=== PATIENT | female | born 1990 | race American Indian/Alaskan Native ===

== ENCOUNTER → 2020-11-05 17:02 | Outpatient (CLI) | payer MEDICAID, SELFPAY ==
[2020-11-05 18:03] LABS: Add Manual Diff / Slide Review NO; Basophils Absolute Auto 0 /uL (0-100); Basophils Percent Auto 0.6 % (0-2); Eosinophils Absolute Auto 200 /uL (0-450); Eosinophils Percent Auto 2.1 % (2-4); Hematocrit 30.9 % (36-46); Hemoglobin 10.8 g/dL (12.0-16.0); Lymphocytes Absolute Auto 1300 /uL (1100-4500); Lymphocytes Percent Auto 15.9 % (25-40); Mean Corpuscular HGB Conc 34.8 % (30-36); Mean Corpuscular Hemoglobin 31.2 PG (26-34); Mean Corpuscular Volume 89.5 fL (80-100); Monocytes Absolute Auto 300 /uL (0-900); Monocytes Percent Auto 3.6 % (3-14); Neutrophils Absolute Auto 6300 /uL (1500-7000); Neutrophils Percent Auto 77.8 % (50-75); Platelet Count 236 X10^3/uL (150-400); Red Blood Cell Count 3.45 X10^6/uL (4.0-5.2); Red Cell Distribution Width 14.4 % (11.6-14.8)
[2020-11-06 09:22] LABS: RPR Screen Non Reactive (Non Reactive); Varicella IgG Antibody 553 index (Immune >165)
[2020-11-06 15:55] LABS: Hepatitis B Surface Antigen NEGATIVE s/c (NEGATIVE); Rubella Antibody IgG 33.6 IU/mL (>15)
[2020-11-06 16:07] LABS: HIV 1 & 2 Ab/Ag 4th Gen Combo NEGATIVE (NEGATIVE); Hep C Virus Ab w/Reflex Quant NEGATIVE s/c (NEGATIVE)
[2020-11-07 20:35] LABS: Estriol, Free 2.43 ng/mL (.); Inhibin A, Dimeric 462.84 pg/mL (.); Inhibin A, MoM 1.82 (.); Maternal Ethnicity Other (.); Maternal Weight 104 lbs (.); Number of Fetuses Twins (.); OSBR Risk 1 IN 10000 (.); Results Report (.); Test Results *Screen Negative* (.); hCG, Serum 36847 mIU/mL (.)
== END ==
PROVIDERS: Referring Provider Obstetrics & Gynecology; Visit Provider Obstetrics & Gynecology
DX: O30.041 Twin pregnancy, dichorionic/diamniotic, first trimester (principal); Z3A.16 16 weeks gestation of pregnancy
CPT/HCPCS: 36415; 80055; 82105; 82677; 84702; 86336; 86787; 86803; 86850; 86900; 86901; 87389

== ENCOUNTER → 2021-01-06 10:28 | Outpatient (CLI) | payer MEDICAID, SELFPAY ==
--- NOTE | 2021-01-06 10:30 | DI.US.S_ITS ---
PROCEDURE: US OB >= 14 WK FETUS ADD GEST INDICATIONS: Evaluate anatomy and twin gestation. OUTSIDE/PRIOR DATING DATA: First dating scan (date and location): 08/31/2020 . Estimated date of delivery (HUI) from first dating scan: 04/17/2021 . TECHNIQUE: Real-time scanning was performed of the fetuses, with image documentation and biometric measurements. Endovaginal scanning: No COMPARISON: None. FINDINGS: General: An intrauterine dichorionic-diamniotic twin is present, as evidenced by separate placentas, differing sexes, or an intervening membrane of greater than 2 mm. Composite amniotic fluid index: Not evaluated Maternal cervical canal: 3.0 cm long. Normal lower limit is 2.5 cm. FETUS A: Fetus is located on the maternal left side, and is in vertex presentation. Largest amniotic fluid pocket: 7.2 cm, normal is 2-8 cm. Placental position is posterior , without previa. heart rate: 137 beats per minute. biometrics: Biparietal diameter: 27 weeks Head circumference: 26 weeks Abdominal circumference: 25 weeks Femur length: 25 weeks 2 days Estimated gestational age from initial scan: 25 weeks 4 days Composite gestational age from present scan: 25 weeks 6 days Estimated weight and percentile: 788 g; 26 percentile Measurement variability for biometric dating: +/- 7 days from 14 weeks to 15 weeks 6 days gestation, +/- 10 days from 16 weeks to 21 weeks 6 days gestation, +/- 2 weeks from 22 weeks to 27 weeks 6 days gestation, +/- 3 weeks for 28 weeks gestation or later. weight reference: 4500 g or EFW >90/95% is considered macrosomia or large for gestational age. EFW <10% is small for gestational age. EFW 5% or less is considered intra-uterine growth restriction. Normal appearance of the ventricles, choroid plexus, cerebellum, cisterna magna, face, spine, four-chamber heart, cardiac outflow tracts, chest, stomach, kidneys, cord insertion site, urinary bladder and the right and left upper lower extremities. FETUS B: Fetus is located on the maternal right side, and is in vertex presentation. Largest amniotic fluid pocket: 6.8 cm, normal is 2-8 cm. Placental position is posterior, without previa. heart rate: 139 beats per minute. biometrics: Biparietal diameter: 25 weeks 6 days Head circumference: 25 weeks 1 day Abdominal circumference: 25 weeks 2 days Femur length: 24 weeks 5 days Estimated gestational age from initial scan: 25 weeks 4 days Composite gestational age from present scan: 25 weeks 2 days Estimated weight and percentile: 766 g; 20 percentile Measurement variability for biometric dating: +/- 7 days from 14 weeks to 15 weeks 6 days gestation, +/- 10 days from 16 weeks to 21 weeks 6 days gestation, +/- 2 weeks from 22 weeks to 27 weeks 6 days gestation, +/- 3 weeks for 28 weeks gestation or later. weight reference: 4500 g or EFW >90/95% is considered macrosomia or large for gestational age. EFW <10% is small for gestational age. EFW 5% or less is considered intra-uterine growth restriction. Normal appearance of the ventricles, choroid plexus, cerebellum, cisterna magna, face, spine, four-chamber heart, cardiac outflow tracts, chest, stomach, kidneys, cord insertion site, urinary bladder and the right and left upper lower extremities. IMPRESSION: 1. Living diamniotic dichorionic twin gestation and interval growth is normal for each fetus. 2. Placental cord insertion site not well visualized for fetus A; otherwise normal anatomic survey. Dictated by: Musa Bazan RRRaulito Interpreted: Cynthia Thacker MD on 01/06/2021 at 14:36 Transcribed by: SUMMER on 01/06/2021 at 14:48 Approved by: Cynthia Thacker M.D. on 01/06/2021 at 16:15
== END ==
PROVIDERS: PCP Obstetrics & Gynecology; Referring Provider Obstetrics & Gynecology; Visit Provider Obstetrics & Gynecology
DX: O30.042 Twin pregnancy, dichorionic/diamniotic, second trimester (principal); Z3A.25 25 weeks gestation of pregnancy
CPT/HCPCS: 76811; 76812

== ENCOUNTER → 2021-01-19 08:36 | Outpatient (CLI) | payer MEDICAID, SELFPAY ==
[2021-01-19 10:37] LABS: Hemoglobin 10.7 g/dL (12.0-16.0)
[2021-01-19 11:22] LABS: GTT (PREG) 1 Hour PP 50gm Dose 139 mg/dL (76-139)
== END ==
PROVIDERS: Referring Provider Obstetrics & Gynecology; Visit Provider Obstetrics & Gynecology
DX: Z34.82 Encounter for supervision of other normal pregnancy, second trimester (principal); Z3A.27 27 weeks gestation of pregnancy
CPT/HCPCS: 36415; 82950; 85014; 85018

== ENCOUNTER 2021-03-05 09:08 | Emergency (ER) | payer MEDICAID, SELFPAY ==
[2021-03-05 09:14] VITALS: BP 140/86; PULSE 83; RESP 14; TEMP 36.8; O2SAT 100; BMI 28.1
--- NOTE | 2021-03-05 09:19 | PC.NURSE ---
left side face swollen
--- NOTE | 2021-03-05 09:25 | ED.DENTAL ---
HPI - Dental/Oral General Chief complaint: Dental/Oral Stated complaint: Tooth Ache Time Seen by Provider: 03/05/21 09:09 Source: patient Mode of arrival: Ambulatory History of Present Illness HPI Narrative: 31F nonsmoker with history of opioid abuse presents with left upper facial swelling and dental pain since yesterday. She denies any injury. She states she has had known dental issues but has not been of the see her dentist. She has had no fever or chills and denies any drainage in her mouth. She has no difficulty swallowing or breathing. She is currently with twins at 33 weeks. She has been chewing on ice as her only method of treatment. Related Data Home Medications Medication Instructions Recorded Confirmed buprenorphine 4 mg-naloxone 1 mg 1 film SUBLINGUAL DAILY ea 09/25/20 02/09/21 sublingual film (Suboxone) buprenorphine 8 mg-naloxone 2 mg 2 film SUBLINGUAL DAILY 09/25/20 02/09/21 sublingual film (Suboxone) ondansetron 4 mg disintegrating 4 mg PO Q6H 09/25/20 02/09/21 tablet Previous Rx's Medication Instructions Recorded vit no.116-iron 28 1 pkg PO DAILY #60 ea 09/25/20 mg-folic acid 800 mcg-dha 200 mg oral pack (Expecta ) amoxicillin 875 mg-potassium 1 tab PO BID #20 tab 03/05/21 clavulanate 125 mg tablet (Augmentin) Allergies Allergy/AdvReac Type Severity Reaction Status Date / Time No Known Drug Allergies Allergy Verified 03/05/21 09:17 Review of Systems Review of Systems Narrative: GENERAL: Denies chills, fatigue, malaise, fever, sweats. HEENT: See HPI RESPIRATORY: Denies dyspnea, cough, wheezing, hemoptysis, sputum. CARDIOVASCULAR: Denies chest pain, palpitations, orthopnea, edema, GASTROINTESTINAL: Denies nausea, vomiting, abdominal pain, diarrhea, constipation, melena. : Denies dysuria, frequency, incontinence, hematuria, urinary retention. MUSCULOSKELETAL: denies weakness, joint pain, or bony pain SKIN: Denies rash, skin lesions, or other NEUROLOGIC: Denies weakness, headache, numbness, change in speech, confusion, seizures, incoordination. PSYCHIATRIC: No concerning psychosocial issues. 12 point review of systems is negative except for those stated above Patient History Medical History Chicken pox (~1995) Chronic back pain (~2017) Fall from balcony (~2017) Scoliosis Substance abuse (~2018) Wears glasses Social History marital status: unmarried,living together number of children: 1 household members: significant other and children lives independently: Yes caregiver/support person: No housing: apartment (Moving into a new apartment today. ) pets and animals: Yes (1 Puppy: not sure if she will keep it. Milagro. ) education level: high school (GED in 2018. 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 ) current occupational exposures/hazards: No special florencio needs: No seatbelt use: always do you feel safe at home: Yes Smoking Status: Never smoker second hand exposure: No alcohol intake: never (In recovery.) substance use type: marijuana (Stopped with diagnosis. ) during the past year weight has: remained stable well-balanced diet: daily or most days daily servings fruits/ve-4 caffeine: No Type(s) of exercise: walking frequency: daily duration: 30-45 minutes/day Smoking Status: Never smoker alcohol intake frequency: holidays/special occasions only Substance Use Type: does not use Exam Narrative Exam Narrative: GEN: AOx3 and in mild distress EYES: Pupils are equal, round, and reactive to light and accommodation. Extraoccular muscles are intact bilaterally. There is no subconjunctival hemorrhage or exudate. ENT: left upper facial swelling. No redness, warmth, or fluctuance. Oral exam notes widespread poor dentition. No palpable abscess to drain. CHEST: Lungs are clear to auscultation bilaterally and free of wheezes, rales, or rhonchi. Heart rate is regular rhythm, there are no murmurs, clicks, rubs, or gallops. There is no chest wall tenderness. ABD: Abdomen is soft and nontender. There is no guarding or rebound. Bowel sounds are normal in all 4 quadrants. There is no mass or organomegaly. EXT: Full painless ROM of all extremities with no loss of sensation or strength. SKIN: Warm, pink, and dry. No erythema or rash Initial Vital Signs Initial Vital Signs: Vital Signs Temperature 98.2 F 03/05/21 09:14 Pulse Rate 83 03/05/21 09:14 Respiratory Rate 14 03/05/21 09:14 Blood Pressure 140/86 03/05/21 09:14 Pulse Oximetry 100 03/05/21 09:14 Course Vital Signs Vital signs: Vital Signs - 8 hr 03/05/21 09:14 Temperature 98.2 F Pulse Rate 83 Respiratory Rate 14 Blood Pressure 140/86 Pulse Oximetry 100 Discharge Plan Departure Patient Disposition: Home Clinical Impression: Dental infection Instructions: Tooth Abscess Activity Restrictions/Additional Instructions: *You have been diagnosed with [Dental infection with likely abscess ] *What to do: *Please continue to take your regular medications as directed. [ ] New medication prescriptions sent to your pharmacy: *Please follow up with your primary care provider in 2-3 days, call for an appointment. Let them know you were seen in the Emergency Department and that we ask that you be seen in follow up. We will electronically transmit a record of today's note if your PCP is in our system *If you do not have a primary care provider please contact the [facility] Resource line at [phone]. They will ask some questions about your medical history and help get you set up with a doctor in the community. *Return to Emergency Department if you should have any new, worsening or concerning symptoms, such as [fever greater than 101 F, shaking chills, worsening pain, persistent vomiting or other bothersome symptoms] Prescriptions: New amoxicillin-pot clavulanate [Augmentin] 875-125 mg tablet 1 tab PO BID Qty: 20 0RF No Action buprenorphine-naloxone [Suboxone] 8-2 mg film 2 film sublingual DAILY 0RF Rx Instructions: place 1 strip/tab under (each) side of tongue ondansetron 4 mg tablet,disintegrating 4 mg PO Q6H 0RF Expecta 28 mg iron-800 mcg-200 mg combo pack 1 pkg PO DAILY Qty: 60 4RF buprenorphine-naloxone [Suboxone] 4-1 mg film 1 film sublingual DAILY 0RF Rx Instructions: place 1 strip/tab under (each) side of tongue Referrals: Miscellaneous,Doctor, MD [Primary Care Provider] -
== END 2021-03-05 09:37 | disposition home or self-care (01) ==
PROVIDERS: Emergency Provider Emergency Medicine
DX: O26.893 Other specified pregnancy related conditions, third trimester (principal); K04.7 Periapical abscess without sinus; Z3A.33 33 weeks gestation of pregnancy
CPT/HCPCS: 99281

== ENCOUNTER 2021-03-11 16:11 | Outpatient (CLI) | payer MEDICAID, SELFPAY | END 2021-03-11 17:10 | disposition home or self-care (01) | LOC: OB 03-16 14:40 | PROVIDERS: Referring Provider Obstetrics & Gynecology; Visit Provider Obstetrics & Gynecology | DX: O30.043 Twin pregnancy, dichorionic/diamniotic, third trimester (principal); Z3A.34 34 weeks gestation of pregnancy; Z34.83 Encounter for supervision of other normal pregnancy, third trimester | CPT/HCPCS: 59025; 87086; G0378; G0379 ==

== ENCOUNTER → 2021-03-11 16:21 | Outpatient (CLI) | payer MEDICAID, SELFPAY | PROVIDERS: Referring Provider Obstetrics & Gynecology; Visit Provider Obstetrics & Gynecology | DX: Z34.83 Encounter for supervision of other normal pregnancy, third trimester (principal); Z3A.34 34 weeks gestation of pregnancy | CPT/HCPCS: 87086 ==

== ENCOUNTER → 2021-03-26 15:22 | Outpatient (CLI) | payer MEDICAID, SELFPAY ==
[2021-03-27 14:35] LABS: Strep Grp B PCR NEG for Grp B Strep
== END ==
PROVIDERS: PCP Obstetrics & Gynecology; Visit Provider Obstetrics & Gynecology
DX: Z34.83 Encounter for supervision of other normal pregnancy, third trimester (principal); Z3A.36 36 weeks gestation of pregnancy
CPT/HCPCS: 87653

== ENCOUNTER → 2021-03-27 16:06 | Outpatient (CLI) | payer MEDICAID, SELFPAY ==
[2021-03-27 16:50] LABS: Add Manual Diff / Slide Review NO; Basophils Absolute Auto 100 /uL (0-100); Basophils Percent Auto 1.2 % (0-2); Eosinophils Absolute Auto 100 /uL (0-450); Eosinophils Percent Auto 1.4 % (2-4); Hemoglobin 11.5 g/dL (12.0-16.0); Lymphocytes Absolute Auto 1200 /uL (1100-4500); Mean Corpuscular HGB Conc 34.9 % (30-36); Mean Corpuscular Hemoglobin 30.5 PG (26-34); Mean Corpuscular Volume 87.5 fL (80-100); Monocytes Absolute Auto 200 /uL (0-900); Monocytes Percent Auto 4.7 % (3-14); Neutrophils Absolute Auto 3600 /uL (1500-7000); Neutrophils Percent Auto 69.7 % (50-75); Platelet Count 181 X10^3/uL (150-400); Red Blood Cell Count 3.77 X10^6/uL (4.0-5.2); Red Cell Distribution Width 12.6 % (11.6-14.8); White Blood Cell Count 5.1 X10^3/uL (4.5-11.0)
[2021-03-27 17:10] LABS: Aspartate Aminotransferase 28 IU/L (14-36); BUN Creatinine Ratio 11.7 (6-22); Blood Urea Nitrogen 11 mg/dL (7-17); Estimated Glomerular Filt Rate > 60.0 mL/min (>60); Uric Acid 6.4 mg/dL (2.5-6.2)
[2021-03-27 19:18] LABS: Creatinine Urine Random 253.4 mg/dL
[2021-03-27 19:26] LABS: Protein (Total) Urine Random 578 mg/dL (0-12); Protein Creatinine Ratio Urine 2.28 GRAM/24H
== END ==
PROVIDERS: PCP Obstetrics & Gynecology; Referring Provider Obstetrics & Gynecology; Visit Provider Obstetrics & Gynecology
DX: O30.043 Twin pregnancy, dichorionic/diamniotic, third trimester (principal); Z3A.37 37 weeks gestation of pregnancy
CPT/HCPCS: 36415; 82570; 84156; 84450; 84550; 85025

== ENCOUNTER 2021-04-02 13:44 | Inpatient (IN) | payer MEDICAID, SELFPAY ==
[2021-04-02 14:31] LABS: Add Manual Diff / Slide Review NO; Basophils Absolute Auto 100 /uL (0-100); Basophils Percent Auto 1.1 % (0-2); Eosinophils Absolute Auto 100 /uL (0-450); Eosinophils Percent Auto 1.4 % (2-4); Hematocrit 35.2 % (36-46); Hemoglobin 12.2 g/dL (12.0-16.0); Lymphocytes Absolute Auto 1400 /uL (1100-4500); Mean Corpuscular HGB Conc 34.6 % (30-36); Mean Corpuscular Hemoglobin 30.1 PG (26-34); Monocytes Absolute Auto 300 /uL (0-900); Monocytes Percent Auto 5.5 % (3-14); Neutrophils Absolute Auto 3700 /uL (1500-7000); Platelet Count 196 X10^3/uL (150-400); Red Blood Cell Count 4.05 X10^6/uL (4.0-5.2); White Blood Cell Count 5.5 X10^3/uL (4.5-11.0)
[2021-04-02 14:35] LABS: Aspartate Aminotransferase 29 IU/L (14-36); BUN Creatinine Ratio 15.5 (6-22); Blood Urea Nitrogen 17 mg/dL (7-17); Estimated Glomerular Filt Rate 58.3 mL/min (>60); Uric Acid 6.9 mg/dL (2.5-6.2)
[2021-04-03 07:11] LABS: Add Manual Diff / Slide Review NO; Basophils Absolute Auto 100 /uL (0-100); Eosinophils Absolute Auto 100 /uL (0-450); Eosinophils Percent Auto 1.7 % (2-4); Hematocrit 34.9 % (36-46); Hemoglobin 12.1 g/dL (12.0-16.0); Lymphocytes Absolute Auto 1900 /uL (1100-4500); Lymphocytes Percent Auto 28.1 % (25-40); Mean Corpuscular HGB Conc 34.8 % (30-36); Mean Corpuscular Hemoglobin 30.1 PG (26-34); Mean Corpuscular Volume 86.7 fL (80-100); Monocytes Absolute Auto 400 /uL (0-900); Monocytes Percent Auto 6.5 % (3-14); Neutrophils Absolute Auto 4200 /uL (1500-7000); Neutrophils Percent Auto 62.7 % (50-75); Platelet Count 183 X10^3/uL (150-400); Red Blood Cell Count 4.02 X10^6/uL (4.0-5.2); White Blood Cell Count 6.7 X10^3/uL (4.5-11.0)
[2021-04-03 07:26] LABS: Aspartate Aminotransferase 27 IU/L (14-36); BUN Creatinine Ratio 18.8 (6-22); Blood Urea Nitrogen 21 mg/dL (7-17); Estimated Glomerular Filt Rate 57.1 mL/min (>60); Uric Acid 7.3 mg/dL (2.5-6.2)
[2021-04-03 07:27] LABS: COVID19 -Nasal RAPID Negative (Negative)
[2021-04-03] MEDS: LACTATED RINGERS 1,000 ML 100 ML IV ×2 (07:40→09:00)
--- NOTE | 2021-04-03 07:41 | P.HPOB_ITS ---
OB HPI Date/Time Date of admission: 04/03/21 Date Patient Seen: 04/03/21 Time Patient Seen: 07:42 History of Present Condition Chief complaint: L&D HUI Calculator Estimated Delivery Date Method Current WG Current Estimate 04/17/21 Ultrasound #2 38w 0d Other Estimates 04/09/21 LMP (Uncertain) 39w 1d 03/31/21 Ultrasound #1 40w 3d # 2 Estimated Gestational Age (weeks): 38 : 2 Para: 1 care: good care, initiated at week # (11), number of visits (9) and pounds weight gain (48) Dating criteria OB: LMP confirmed by 1st trimester US Ultrasounds: normal 1st trimester US and normal mid trimester US Obstetrical complications: preeclampsia Medical complications OB: other (Suboxone 20mg/day) Indications Indication for induction OB: gestational HTN/pre-eclampsia and other (Twins) Preadmission Labs Last OB Lab Results: Blood Type A Positive 04/03/21 07:45 04/03/21 Antibody Screen Negative 04/03/21 07:45 04/03/21 Hematocrit 34.9 % (36-46) L 04/03/21 07:01 04/03/21 Hemoglobin 12.1 g/dL (12.0-16.0) 04/03/21 07:01 04/03/21 Hepatitis B Surface Antigen Negative s/c (NEGATIVE) 11/05/20 17:19 11/05/20 Hepatitis C Antibody Negative s/c (NEGATIVE) 11/05/20 17:19 11/05/20 Rubella Antibody 33.6 IU/mL (>15) 11/05/20 17:19 11/05/20 Varicella-Zoster IgG Antibody 553 index (Immune >165) 11/05/20 17:19 11/05/20 Glucose 1 Hour 139 mg/dL (76-139) 01/19/21 09:53 01/19/21 Group B Streptococcus (PCR) Neg for grp b strep 03/26/21 15:22 03/26/21 -: Chlamydia screen: negative, Gonorrhea screen: negative and Urine: negative -: PAP smear: Normal Genetic Screens: Quad screen: Normal External Labs -: Urine: negative Prior (ies) Past Pregnancies Del. Date GA/Weeks Labor Lgth Wt Sex Route Outcome Anesthesia Place Delv Breastfeed Preg Comp Name 07/30/17 38w6 2 6 lb 9.046 oz Male vaginal live - full term none [facility] Surya Jonas Did not breastfeed - Suboxone [facility] Delivery Date: 07/30/17 Last Updated by: Mariah Birmingham R.N. Did not even know she was in labor, thought it was just cramps. Came in complete @ 10cm. Sounded like precip labor. Baby kept in NICU x 8days for Subutex W/D. Baby did well. Did not breastfeed r/t opioids. Evaluation Evaluation Baseline heart rate: 130 Variability: Moderate (11-25) monitor accelerations: Present Monitor Decelerations: Absent Contraction Frequency (minutes): 4 Uterine Contraction Intensity: Moderate Status: Category l Dilation (cm): 7 Effacement (%): 100 station: -1 Position of cervix: mid Consistency: soft [facility] Medical History Chicken pox (~1995) Chronic back pain (~2016) Fall from balcony (~2016) Scoliosis Substance abuse (~2017) Wears glasses Social History marital status: unmarried,living together number of children: 1 household members: significant other and children lives independently: Yes caregiver/support person: No housing: apartment (Moving into a new apartment today. ) pets and animals: Yes (1 Puppy: not sure if she will keep it. Milagro. ) education level: high school (GED in 2018. 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 ) current occupational exposures/hazards: No special florencio needs: No seatbelt use: always do you feel safe at home: Yes Smoking Status: Never smoker second hand exposure: No alcohol intake: never (In recovery.) substance use type: marijuana (Stopped with diagnosis. ) during the past year weight has: remained stable well-balanced diet: daily or most days daily servings fruits/ve-4 caffeine: No Type(s) of exercise: walking frequency: daily duration: 30-45 minutes/day Meds Home Medications and Allergies Home Medications Medication Instructions Recorded Confirmed Type buprenorphine 4 mg-naloxone 1 mg 1 film SUBLINGUAL DAILY ea 09/25/20 04/02/21 History sublingual film (Suboxone) buprenorphine 8 mg-naloxone 2 mg 2 film SUBLINGUAL DAILY 09/25/20 04/02/21 History sublingual film (Suboxone) ondansetron 4 mg disintegrating 4 mg PO Q6H 09/25/20 04/02/21 History tablet amoxicillin 875 mg-potassium 1 tab PO BID #20 tab 03/05/21 04/02/21 Rx clavulanate 125 mg tablet (Augmentin) vit no.116-iron 28 1 pkg PO DAILY #60 ea 03/27/21 04/02/21 Rx mg-folic acid 800 mcg-dha 200 mg oral pack (Expecta ) Allergies Allergy/AdvReac Type Severity Reaction Status Date / Time No Known Drug Allergies Allergy Verified 04/02/21 13:01 OB Exam Narrative Exam Narrative: Generally: Patient very uncomfortable. Lungs: Clear to auscultation bilaterally Cardiovascular: Regular rate and rhythm Fundal height: 48cm Ext: 3+ edema, 2+ DTR's. No clonus Objective Labs Result Diagrams: 04/03/21 07:01 04/03/21 07:01 Labs: Laboratory Results - last 24 hr 04/02/21 04/02/21 04/03/21 13:58 13:58 07:00 WBC 5.5 RBC 4.05 Hgb 12.2 Hct 35.2 L MCV 87.0 MCH 30.1 MCHC 34.6 RDW 13.0 Plt Count 196 Neut % (Auto) 67.0 Lymph % (Auto) 25.0 [place] % (Auto) 5.5 Eos % (Auto) 1.4 L Baso % (Auto) 1.1 Neut # (Auto) 3700 Lymph # (Auto) 1400 [place] # (Auto) 300 Eos # (Auto) 100 Baso # (Auto) 100 BUN 17 Creatinine 1.10 H Estimated GFR 58.3 L BUN/Creatinine Ratio 15.5 Uric Acid 6.9 H AST 29 SARS-CoV-2 (PCR) Negative 04/03/21 04/03/21 07:01 07:01 WBC 6.7 RBC 4.02 Hgb 12.1 Hct 34.9 L MCV 86.7 MCH 30.1 MCHC 34.8 RDW 13.0 Plt Count 183 Neut % (Auto) 62.7 Lymph % (Auto) 28.1 [place] % (Auto) 6.5 Eos % (Auto) 1.7 L Baso % (Auto) 1.0 Neut # (Auto) 4200 Lymph # (Auto) 1900 [place] # (Auto) 400 Eos # (Auto) 100 Baso # (Auto) 100 BUN 21 H Creatinine 1.12 H Estimated GFR 57.1 L BUN/Creatinine Ratio 18.8 Uric Acid 7.3 H AST 27 SARS-CoV-2 (PCR) Assessment and Plan Assessment and Plan Assessment and Plan narrative: Assessment: 31-year-old 2 para 0 at 38 weeks gestation with dichorionic/diamniotic twins Preeclampsia Active labor Plan: Epidural Expected management to spontaneous vaginal delivery Pediatrics notified Time Spent with Patient Total time spent with greater than 50% in coordination of care (as documented) at patient's floor/unit and/or counseling patient:: 15-24 minutes
[2021-04-03] MEDS: FENT 2MCG/ML BUPIV 0.125% EPI 200 MCG/100 ML PLAST..BAG 10 MCG EPIDURAL (08:00)
[2021-04-03] MEDS: OXYTOCIN PREMIX 30 UNIT/500 ML PLAST..BAG 200 UNIT IV (10:55)
[2021-04-03] MEDS: OXYTOCIN 10 UNIT/ML VIAL IM (10:57)
[2021-04-03] MEDS: miSOPROStoL 200 MCG TABLET 800 MCG PR (11:02)
[2021-04-03] MEDS: CARBOPROST 250 MCG/ML AMPUL IM (11:04)
[2021-04-03] MEDS: TRANEXAMIC ACID 1,000 MG in SODIUM CHLORIDE 0.9% 100 ML 200 ML IV (11:06)
[2021-04-03] MEDS: ONDANSETRON 4 MG/2 ML INJ IV (11:16)
[2021-04-03] MEDS: HYDRALAZINE 20 MG/ML VIAL 5 MG IV ×2 (11:56→12:42)
--- NOTE | 2021-04-03 12:36 | P.PCNOB_ITS ---
Events: Pre-Eclampsia and Multiple gestation (Twins) Labor & Delivery Delivery date: 04/03/21 Intrapartal Events: Mild Preeclampsia Cervical ripening method: none Induction method: none Delivery augmentation: rupture of membranes Delivery monitor: external FHT and external uterine Route of delivery: (x2) Episiotomy description: None L&D Laceration Description: Perineal - 2nd Degree and Labial (right, superficial) Delivery repair: vicryl and chromic Estimated blood loss (mL): 800 Anesthesia Type: Epidural Complications: hemorrhage Baby 1: Infant gender: Male Presentation: vertex Position: Left Occiput Anterior Cord Vessel Description: 3 Vessels score (1 min): 8 score (5 min): 9 weight: 6 lb 4 oz 2: Infant gender: Female Presentation: vertex Position: Left Occiput Anterior Placenta delivery description: Spontaneous and Normal Configuration Cord Vessel Description: 3 Vessels score (1 min): 8 score (5 min): 9 weight: 6 lb 2 oz Narrative: Patient complete. Artificial rupture membranes of sac A with copious clear amniotic fluid. With 1 contraction the baby delivered in the DAISY presentation over an intact perineum at 1035. The remainder of the body delivered without difficulty and was placed on mom's abdomen. After 5 minutes, the cord was double clamped and cut. Cord bloods were obtained. The cord was tagged with 1 cord clamp. After several contractions baby B was found to be in the vertex presentation. Artificial rupture membranes of sac B was performed. There was copious clear amniotic fluid. With 1 contraction, baby B delivered in the ADISY presentation at 1050. There was a very short cord. This was doubly clamped and cut. Cord bloods were obtained from baby B. 10 units of IM Pitocin were given due to difficulties with the IV. The placenta delivered intact with 2 three-vessel cords. The fundus was massaged to firm. The IV began to work and Pitocin was given in the IV fluids. Patient had some brisk bleeding. 800 m cg of Cytotec were placed rectally. 250 mcg of IM Hemabate were given. Continued brisk bleeding. A Bakri balloon was placed and hooked to a grenade. 1000mg of Transenamic acid were given IV. Bleeding slowed to minimal. A second-degree vaginal laceration was repaired in the usual fashion with 2-0 Vicryl and 2-0 chromic. A superficial right labial tear was repaired with 2-0 chromic. Hemostasis was achieved. Estimated blood loss 800 cc. Apgars baby A, 8 at 1 minute and 9 at 5 minutes. Apgars for baby B, 8 at 1 minute and 9 at 5 minutes. Bottle feeding. Epidural analgesia. Mom and infants stable to recovery. Plan for aftercare: Other (Bakri balloon in place)
[2021-04-03] MEDS: METOCLOPRAMIDE 10 MG/2 ML INJ IV (12:46)
[2021-04-03] MEDS: NIFEdipine 30 MG TAB ER PO (12:48)
[2021-04-03] MEDS: DIPHENOXYLATE/ATROP 2.5/0.025 TABLET 2 EACH PO (13:48)
[2021-04-03] MEDS: IBUPROFEN 600 MG TABLET PO ×2 (14:22→20:31)
[2021-04-03 14:28] LABS: Hemoglobin 10.5 g/dL (12.0-16.0)
[2021-04-03] MEDS: ACETAMINOPHEN 325 MG TABLET 650 MG PO ×2 (17:38→23:37)
[2021-04-03] MEDS: DERMOPLAST SPRAY 20% 60 ML 1 SPRAY TOP (17:39)
[2021-04-03 19:08] LABS: Hematocrit 27.2 % (36-46); Hemoglobin 9.7 g/dL (12.0-16.0)
[2021-04-03 19:29] VITALS: BP 140/78
[2021-04-03] MEDS: ALBUMIN HUMAN 25 GM/100 ML VIAL IV (22:10)
[2021-04-03] MEDS: FUROSEMIDE 20 MG/2 ML VIAL IV (23:51)
[2021-04-04] MEDS: IBUPROFEN 600 MG TABLET PO ×3 (02:33→18:54)
[2021-04-04] MEDS: ACETAMINOPHEN 325 MG TABLET 650 MG PO (05:36)
[2021-04-04 07:23] LABS: Hemoglobin 7.2 g/dL (12.0-16.0)
[2021-04-04 07:25] LABS: Hematocrit 20.4 % (36-46)
[2021-04-04 07:26] LABS: Add Manual Diff / Slide Review NO; Basophils Absolute Auto 0 /uL (0-100); Basophils Percent Auto 0.3 % (0-2); Eosinophils Absolute Auto 0 /uL (0-450); Eosinophils Percent Auto 0.1 % (2-4); Hemoglobin 7.2 g/dL (12.0-16.0); Lymphocytes Absolute Auto 2400 /uL (1100-4500); Lymphocytes Percent Auto 17.7 % (25-40); Mean Corpuscular HGB Conc 35.3 % (30-36); Mean Corpuscular Hemoglobin 30.5 PG (26-34); Mean Corpuscular Volume 86.3 fL (80-100); Monocytes Absolute Auto 700 /uL (0-900); Monocytes Percent Auto 5.6 % (3-14); Neutrophils Absolute Auto 10100 /uL (1500-7000); Neutrophils Percent Auto 76.3 % (50-75); Platelet Count 186 X10^3/uL (150-400); Red Blood Cell Count 2.37 X10^6/uL (4.0-5.2); Red Cell Distribution Width 13.4 % (11.6-14.8); White Blood Cell Count 13.3 X10^3/uL (4.5-11.0)
[2021-04-04 07:27] LABS: Hematocrit 20.4 % (36-46)
[2021-04-04 07:35] LABS: Aspartate Aminotransferase 50 IU/L (14-36); BUN Creatinine Ratio 21.1 (6-22); Blood Urea Nitrogen 20 mg/dL (7-17); Estimated Glomerular Filt Rate > 60.0 mL/min (>60); Uric Acid 7.3 mg/dL (2.5-6.2)
[2021-04-04] MEDS: FERROUS SULFATE 325 MG TABLET PO (09:03)
[2021-04-04] MEDS: NIFEdipine 30 MG TAB ER PO (09:03)
[2021-04-04] MEDS: BUPRENORPHINE/NALOXONE 8MG/2MG 1 TAB 2.5 TAB SL (09:03)
[2021-04-04] MEDS: DOCUSATE 100 MG CAPSULE PO (09:03)
[2021-04-04] MEDS: PRENATAL VIT,CALC/IRON/FOLIC 1 TABLET 1 TAB PO (09:03)
--- NOTE | 2021-04-04 09:45 | P.PNOB_ITS ---
Subjective - OB Subjective Patient comments: no complaints [place] baby status: bottle feeding well feeding status: exclusively bottle feeding Date Patient Seen: 04/04/21 Time Patient Seen: 09:45 Interval history: Patient states she is feeling much better. No headaches, no scotomata, no epigastric pain. Exam Vital Signs (past 8 hours): blood pressure 123/77, pulse is 74, temperature 36.3? Narrative Exam Narrative: Abdomen is soft, nontender. Uterus is firm, at U, nontender. Minimal lochia. Extremities without edema and nontender. Objective Labs Result Diagrams: 04/04/21 06:55 04/04/21 06:55 Labs: Laboratory Results - last 24 hr 04/03/21 04/03/21 04/03/21 07:45 13:36 18:55 WBC RBC Hgb 10.5 L 9.7 L Hct 30.0 L 27.2 L MCV MCH MCHC RDW Plt Count Neut % (Auto) Lymph % (Auto) [place] % (Auto) Eos % (Auto) Baso % (Auto) Neut # (Auto) Lymph # (Auto) [place] # (Auto) Eos # (Auto) Baso # (Auto) BUN Creatinine Estimated GFR BUN/Creatinine Ratio Uric Acid AST Blood Type A Positive Antibody Screen Negative 04/04/21 04/04/21 04/04/21 06:55 06:55 06:55 WBC 13.3 H D RBC 2.37 L Hgb 7.2 L 7.2 L Hct 20.4 L* 20.4 L* MCV 86.3 MCH 30.5 MCHC 35.3 RDW 13.4 Plt Count 186 Neut % (Auto) 76.3 H Lymph % (Auto) 17.7 L [place] % (Auto) 5.6 Eos % (Auto) 0.1 L Baso % (Auto) 0.3 Neut # (Auto) 82537 H Lymph # (Auto) 2400 [place] # (Auto) 700 Eos # (Auto) 0 Baso # (Auto) 0 BUN 20 H Creatinine 0.95 Estimated GFR > 60.0 BUN/Creatinine Ratio 21.1 Uric Acid 7.3 H AST 50 H Blood Type Antibody Screen Assessment & Plan Assessment and Plan (1) Vaginal delivery: Problem details: twins, 1 boy, 1 girl Status: Acute (2) hemorrhage: Status: Acute Plan day: 1 plan OB: routine care Comments: Gradual deflation of Bakri balloon in watching for bleeding. Monitor patient's symptoms with severe anemia. Time Spent With Patient Time: Total time spent is greater than 50% in coordination of care (as documented) at patient's floor/unit and/or counseling patient: Time with patient: less than 15 minutes
[2021-04-05 06:48] LABS: Add Manual Diff / Slide Review NO; Basophils Absolute Auto 0 /uL (0-100); Basophils Percent Auto 0.5 % (0-2); Eosinophils Absolute Auto 100 /uL (0-450); Eosinophils Percent Auto 1.2 % (2-4); Lymphocytes Absolute Auto 2000 /uL (1100-4500); Lymphocytes Percent Auto 20.4 % (25-40); Mean Corpuscular HGB Conc 35.2 % (30-36); Mean Corpuscular Hemoglobin 30.9 PG (26-34); Mean Corpuscular Volume 87.7 fL (80-100); Monocytes Absolute Auto 400 /uL (0-900); Monocytes Percent Auto 4.3 % (3-14); Neutrophils Absolute Auto 7200 /uL (1500-7000); Neutrophils Percent Auto 73.6 % (50-75); Platelet Count 181 X10^3/uL (150-400); Red Cell Distribution Width 13.1 % (11.6-14.8); White Blood Cell Count 9.8 X10^3/uL (4.5-11.0)
[2021-04-05 06:51] LABS: Alanine Aminotransferase 19 IU/L (<35); Albumin 2.4 g/dL (3.5-5.0); Albumin Globulin Ratio 0.9 (1.0-2.8); Alkaline Phosphatase 225 U/L (38-126); Aspartate Aminotransferase 53 IU/L (14-36); Bilirubin Total 0.3 mg/dL (0.2-1.3); Bilirubin Unconjugated 0.3 mg/dL (0.0-1.1); Globulin 2.7 g/dL (1.7-4.1); HEMOLYSIS < 15 (0-50); Hematocrit 19.3 % (36-46); Hemoglobin 6.8 g/dL (12.0-16.0); Total Protein 5.1 g/dL (6.3-8.2)
[2021-04-05] MEDS: PRENATAL VIT,CALC/IRON/FOLIC 1 TABLET 1 TAB PO (08:35)
[2021-04-05] MEDS: NIFEdipine 30 MG TAB ER PO (08:36)
[2021-04-05] MEDS: DOCUSATE 100 MG CAPSULE PO (08:36)
[2021-04-05] MEDS: BUPRENORPHINE/NALOXONE 8MG/2MG 1 TAB 2.5 TAB SL (08:36)
[2021-04-05] MEDS: FERROUS SULFATE 325 MG TABLET PO (08:36)
[2021-04-05 12:05] VITALS: BP 128/66; PULSE 79; RESP 16; TEMP 36.7
--- NOTE | 2021-04-05 12:08 | P.PNOB_ITS ---
Subjective - OB Subjective Patient comments: no complaints and pain well controlled [place] baby status: doing well and bottle feeding well [place] feeding status: pumping and bottle feeding Date Patient Seen: 04/05/21 Time Patient Seen: 12:16 Interval history: PPD #2 s/p x 2. No signs of withdrawal in babies. Mom pumping and giving breast milk. Labs stabilizing. HCT stable. No symptoms from the anemia. Exam Vital Signs (past 8 hours): - 04/05/21 12:05 Temperature 98.0 F Pulse Rate 79 Respiratory Rate 16 Blood Pressure 128/66 Narrative Exam Narrative: Generally: Mom standing and room holding 1 , soothing other on the bed, no acute distress. Fundus: Firm at U Extremities: 1+ edema, 2+ DTRs, negative clonus, negative Daylin's. Objective Labs Result Diagrams: 04/05/21 06:17 04/04/21 06:55 Labs: Laboratory Results - last 24 hr 04/05/21 04/05/21 06:17 06:17 WBC 9.8 RBC 2.20 L Hgb 6.8 L* Hct 19.3 L* MCV 87.7 MCH 30.9 MCHC 35.2 RDW 13.1 Plt Count 181 Neut % (Auto) 73.6 Lymph % (Auto) 20.4 L [place] % (Auto) 4.3 Eos % (Auto) 1.2 L Baso % (Auto) 0.5 Neut # (Auto) 7200 H Lymph # (Auto) 2000 [place] # (Auto) 400 Eos # (Auto) 100 Baso # (Auto) 0 Total Bilirubin 0.3 Conjugated Bilirubin 0.0 Unconjugated Bilirubin 0.3 AST 53 H ALT 19 Alkaline Phosphatase 225 H Total Protein 5.1 L Albumin 2.4 L Globulin 2.7 Albumin/Globulin Ratio 0.9 L Assessment & Plan Assessment and Plan (1) Vaginal delivery: Problem details: twins, 1 boy, 1 girl Status: Acute (2) hemorrhage: Status: Acute Plan day: 2 plan OB: routine care Comments: Continue to diurese Time Spent With Patient Time: Total time spent is greater than 50% in coordination of care (as documented) at patient's floor/unit and/or counseling patient: Time with patient: 15-24 minutes
[2021-04-06] MEDS: PRENATAL VIT,CALC/IRON/FOLIC 1 TABLET 1 TAB PO (09:13)
[2021-04-06] MEDS: FERROUS SULFATE 325 MG TABLET PO (09:13)
[2021-04-06] MEDS: NIFEdipine 30 MG TAB ER PO (09:13)
[2021-04-06] MEDS: DOCUSATE 100 MG CAPSULE PO (09:13)
[2021-04-06] MEDS: BUPRENORPHINE/NALOXONE 8MG/2MG 1 TAB 2.5 TAB SL (09:14)
[2021-04-06] MEDS: IBUPROFEN 600 MG TABLET PO (09:14)
--- NOTE | 2021-04-06 09:45 | PM.OBDS.1 ---
Discharge Providers Provider Date of admission: 04/02/21 13:44 Discharge Date: 04/06/21 Primary care physician: Priscila Ha MD Discharge provider: Priscila Ha MD Summary Hospital Course Date Patient Seen: 04/06/21 Time Patient Seen: 09:46 Diagnoses: Thirty-eight weeks gestation Dichorionic/diamniotic twins Preeclampsia Artificial rupture of membranes sac A/B Spontaneous vaginal delivery x2 hemorrhage Bakri balloon placement Acute blood loss anemia Hospital Course: Patient is a 31-year-old 2 para 2002 who presented on April 02, 2020 for a routine OB visit. She was found to have preeclampsia. Due to her Suboxone use an attempt was made to transfer to [facility], [facility], and [facility] in [facility]. All of these places were short staffed and were unable to take the patient. On the morning of April 03, 2020 an attempt was made to transfer the patient to the [facility], but they did not recommend transfer due to her gestational age and the preeclampsia and recommended induction of labor. 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 She received an epidural for pain management. She had 2 spontaneous vaginal deliveries. After the placenta was removed, she had a hemorrhage requiring IV Pitocin, Hemabate, rectal Cytotec, and trans an an mario acid. A Bakri balloon was placed and bleeding tapered. The Bakri balloon was left in for 24 hours and slowly deflated. It was removed in the afternoon of April 04, 2021. Patient had no further significant bleeding. Her hematocrit dropped to 20 and stabilized there. Her labs began to normalize on day # 2. She had some elevated blood pressure which required 1 dose of IV hydralazine as well as oral nifedipine ER 30. She continues on nifedipine daily. Her Suboxone has continued daily. She is discharged home on day # 3. She is to follow-up in 1 week for a blood pressure check. Peripartum Data Infant Delivery Method: Natural Vaginal (x2) Laceration Description: Perineal - 2nd Degree and Superficial (Right labial) Episiotomy description: None Procedures: Epidural analgesia Artificial rupture of membranes Spontaneous vaginal delivery x2 Second-degree perineal/right superficial labial laceration repair Bakri balloon placement complications: uterine atony (See note above) Oxly 1: Gender: Male Disposition of : other (On observation for withdrawal symptoms) 2: Gender: Female Disposition of : other (On observation for withdrawal symptoms) Discharge Diagnosis (1) Vaginal delivery: Status: Acute Problem Details: twins, 1 boy, 1 girl (2) hemorrhage: Status: Acute Status at Discharge Cognitive/behavioral status at discharge: oriented Functional status at discharge: independent ambulation Overall status at discharge: patient is progressing back to baseline Time Spent with Patient Time attestation: Total time spent providing and/or coordinating discharge services: Time spent: Less than 30 minutes Objective Labs Result Diagrams: 04/05/21 06:17 04/04/21 06:55 Exam Narrative Exam Narrative: Generally: Patient lying in bed, no acute distress Lungs: Clear to auscultation bilaterally Cardiovascular: Regular rate and rhythm Fundus: Firm at U -1 Extremities: 1+ edema, negative Homans, 2+ DTRs Discharge Plan Discharge Plan Patient Disposition: Home Provider Discharge Comment: Call with fever, chills, or bleeding vaginally more than a pad in an hour Ibuprofen 600 mg every 6 hours as needed for cramping vitamin 1 a day Iron 1 a day Discharge orders & Medications Prescriptions: New Mini 6.75 mg iron- 200 mcg tablet 1 tab PO DAILY Qty: 90 3RF Continued Expecta 28 mg iron-800 mcg-200 mg combo pack 1 pkg PO DAILY Qty: 60 6RF buprenorphine-naloxone [Suboxone] 8-2 mg film 2 film sublingual DAILY 0RF Rx Instructions: place 1 strip/tab under (each) side of tongue buprenorphine-naloxone [Suboxone] 4-1 mg film 1 film sublingual DAILY 0RF Rx Instructions: place 1 strip/tab under (each) side of tongue Discontinued ondansetron 4 mg tablet,disintegrating 4 mg PO Q6H 0RF amoxicillin-pot clavulanate [Augmentin] 875-125 mg tablet 1 tab PO BID Qty: 20 0RF No Action nifedipine 30 mg tablet extended release 30 mg PO DAILY Qty: 30 3RF Follow up/Referrals: Priscila Ha MD [Primary Care Provider] - 1 Week (7-10 day BP check. Maybe we can coordinate with baby check. 6 wk PP with Dilcia) Diet/Activity/Treatments Diet: Regular Activity: Nothing in vagina until bleeding stops Skin/Wound/Dressing Care Report to your healthcare provider any signs of infection, such as:: chills, fever, increased pain and unusual drainage Visit Report/Discharge Packet Instructions: DI for Hemorrhage, DI for Labor and Delivery, Vaginal Discharge Data Primary Care Provider: Priscila Ha
[2021-04-06 10:58] VITALS: BP 128/66; PULSE 79; RESP 16; TEMP 36.7
== END 2021-04-06 11:11 | disposition home or self-care (01) | DRG 768 ==
PROVIDERS: Specialist; Admitting Provider Obstetrics & Gynecology; PCP Obstetrics & Gynecology; Referring Provider Obstetrics & Gynecology; Visit Provider Obstetrics & Gynecology
DX: O14.04 Mild to moderate pre-eclampsia, complicating childbirth (principal); Z37.2 Twins, both liveborn; D62 Acute posthemorrhagic anemia; O99.324 Drug use complicating childbirth; F11.21 Opioid dependence, in remission; O90.81 Anemia of the puerperium; O70.1 Second degree perineal laceration during delivery; Z3A.38 38 weeks gestation of pregnancy; Z20.822 Contact with and (suspected) exposure to COVID-19
CPT/HCPCS: 01967; 36415; 59050; 59409; 59899; 80076; 84450; 84550; 85014; 85018; 85025; 86850; 86900; 86901; 87635; C9803; G0379; J0360; J1940; J2405; J2590; J2765; P9041; S0191

== ENCOUNTER → 2022-07-22 15:27 | Outpatient (CLI) | payer MEDICAID, SELFPAY ==
[2022-07-23 17:52] LABS: Strep Grp B PCR NEG for Grp B Strep
== END ==
PROVIDERS: Visit Provider Obstetrics & Gynecology
DX: Z34.83 Encounter for supervision of other normal pregnancy, third trimester (principal); Z3A.36 36 weeks gestation of pregnancy
CPT/HCPCS: 87653

== ENCOUNTER 2022-09-25 17:51 | Emergency (ER) | payer MEDICAID, SELFPAY ==
[2022-09-25 18:25] VITALS: BP 136/68; PULSE 60; RESP 20; TEMP 36.2; O2SAT 99; BMI 27.0
== END 2022-09-26 00:44 | disposition left against medical advice (07) ==
PROVIDERS: Emergency Provider Emergency Medicine
CPT/HCPCS: 99281

== ENCOUNTER 2022-09-26 10:03 | Emergency (ER) | payer MEDICAID, SELFPAY ==
[2022-09-26 10:07] VITALS: BP 117/57; PULSE 91; RESP 18; TEMP 37.2; O2SAT 99; BMI 27.0
--- NOTE | 2022-09-26 10:41 | ED.DENTAL ---
HPI - Dental/Oral General Chief complaint: Dental/Oral Stated complaint: rt bottom tooth pain,swelling Time Seen by Provider: 09/26/22 10:41 Source: patient Mode of arrival: Ambulatory Limitations: no limitations History of Present Illness HPI Narrative: This is a 32-year-old female who presents with complaint of right dental pain and swelling of her cheek. Patient states she has chronic dental caries, she been very anxious about seeing a dentist she gets very nervous about it. She has not had issues with this tooth in particular but started having increasing pain and swelling. She has not had any drainage. She is swelling of the cheek no redness over that region. No fevers. No difficulty with her airway or swelling of the tongue lips or throat. Patient states no chest pain no shortness of breath no nausea or vomiting no other GI or urinary symptoms. She has had antibiotics in the past she states she is had penicillin and has done well with this. Denies any current medical issues. She has had prior C-sections. Former tobacco, occasional alcohol, no current recreational drug use but has used in the past. Related Data Home Medications Medication Instructions Recorded Confirmed [id number] 400 mcg-om3 35 mg-dha 25 tab PO 07/19/22 07/22/22 mg-epa 5 mg-fish oil chewable tablet buprenorphine HCl 8 mg sublingual 24 mg sublingual DAILY 07/19/22 07/22/22 tablet Previous Rx's Medication Instructions Recorded penicillin V potassium 500 mg 500 mg PO Q6H 10 days #40 tabs 09/26/22 tablet Allergies Allergy/AdvReac Type Severity Reaction Status Date / Time No Known Drug Allergies Allergy Verified 09/26/22 10:07 Review of Systems Review of Systems ROS Unobtainable: All systems reviewed & are unremarkable except as noted in HPI and below Patient History Medical History Chicken pox (~1995) Chronic back pain (~2016) Dichorionic diamniotic twin gestation Fall from balcony (~2016) hemorrhage (~04/03/21) Scoliosis Suboxone maintenance treatment complicating , antepartum Substance abuse (~2017) Vaginal delivery (~04/03/21) Wears glasses Surgical History No pertinent past surgical history Family History Mother No problems noted. Father No problems noted. Grandfather Diabetes mellitus Grandmother No problems noted. Sister Heart murmur Pacemaker Social History marital status: unmarried,living together number of children: 3 household members: significant other and children lives independently: Yes caregiver/support person: Yes housing: other ([facility]) pets and animals: Yes education level: high school (GED in 2018. ) occupational status: unemployed current occupational exposures/hazards: No special florencio needs: No travel history: over 6 months ago seatbelt use: always water heater temp set < 120 deg: Yes working smoke detector in home: Yes fire extinguisher in home: Yes carbon monox detector in home: Yes firearms in home: No do you feel safe at home: Yes Smoking Status: Former smoker second hand exposure: Yes (s/o smokes) alcohol intake: never (Sober since age 25) substance use type: marijuana (stopped during twin , did not restart), opiates (fentanyl) and methamphetamine during the past year weight has: remained stable well-balanced diet: daily or most days daily servings fruits/ve or more times/day caffeine: Yes (1-2 cups coffee/day) Type(s) of exercise: walking frequency: daily duration: 30-45 minutes/day Smoking Status: Former smoker tobacco type: cigarettes alcohol intake frequency: holidays/special occasions only Substance Use Type: does not use Exam Narrative Exam Narrative: GEN: well nourished, well appearing female, alert and oriented x 3, patient appears to be in mild distress. HEENT: Atraumatic, pupils are equal round reactive to light, extraocular movements are intact, nares are clear, TMs are clear with no fluid, there is no conjunctival pallor. Throat is clear without any exudates, erythema, tonsillar enlargement or uvular deviation, no swelling of lips, tongue or airway. Patient has significant dental caries throughout, she has swelling adjacent to tooth 28/29, no clear fluid collection or fluctuant region, there is some swelling over the right lower mandible no induration or palpable fluid collection. No warmth or erythema. HEART: Regular rate and rhythm without murmur, clicks, rubs. LUNGS:Lungs clear to auscultation, no wheezes, rales, crackles, chest moves symmetrically ABD:bowel sounds normal, soft, non-tender, no guarding, rebound, rigidity, no masses noted, no hepatosplenomegaly MSCL: Full range of motion, normal gait NEURO:CN 2-12 intact, sensation normal SKIN: No rash, erythema or other skin changes noted. Initial Vital Signs Initial Vital Signs: Vital Signs Temperature 98.9 F 09/26/22 10:07 Pulse Rate 91 H 09/26/22 10:07 Respiratory Rate 18 09/26/22 10:07 Blood Pressure 117/57 L 09/26/22 10:07 Pulse Oximetry 99 09/26/22 10:07 Oxygen Delivery Method Room Air 09/26/22 10:07 Course Orders Ordered: Discontinued Medications Penicillin V Potassium (Penicillin Vk 250 Mg Tablet) 500 mg PO NOW ONE Stop: 09/26/22 10:48 Last Admin: 09/26/22 10:50 Dose: 500 mg Documented By: NR Vital Signs Vital signs: Vital Signs - 8 hr 09/26/22 10:07 Temperature 98.9 F Pulse Rate 91 H Respiratory Rate 18 Blood Pressure 117/57 L Pulse Oximetry 99 Oxygen Delivery Method Room Air MDM - Dental/Oral MDM Narrative Medical decision making narrative: This is a 32-year-old female with chronic dental caries who appears to have developed dental infection. She has swelling over the right mandibular area kind of in the adjacent gingiva but no clear fluctuant fluid collection that is easily drainable over the skin. Patient started on oral antibiotic, discussed follow up with dentist patient is very anxious to follow up with them she has a lot of fear but does have pretty significant dental caries throughout. Discussed there are facility that will do sedation for even evaluation if needed. She states she does have dental coverage. Discussed return precautions all questions answered. Discharge Plan Departure Patient Disposition: Home Clinical Impression: Abscess, dental Instructions: Tooth Abscess Activity Restrictions/Additional Instructions: Please follow up with dentist, if you are very anxious about following up there are facilities that will do sedation for your evaluation and treatment. Take antibiotic until completed. Prescription sent to [facility] in [place]. You can use Tylenol up to a 1000 mg and ibuprofen up to 600 mg every 6 hours as needed for pain. Please return for fevers, rapidly worsening swelling, redness, increasing pain, new drainage, swelling of her lips, airway or tongue, persistent vomiting or other new or concerning changes. Prescriptions: New penicillin V potassium 500 mg tablet 500 mg PO Q6H 10 Days Qty: 40 0RF No Action [id number] oil 400 mcg-35 mg -25 mg-5 mg tablet,chewable PO buprenorphine HCl 8 mg tablet, sublingual 24 mg sublingual DAILY Referrals: Miscellaneous,Doctor, MD [Primary Care Provider] - Stand Alone Forms: Patient Portal/API
[2022-09-26] MEDS: PENICILLIN VK 250 MG TABLET 500 MG PO (10:50)
== END 2022-09-26 10:53 | disposition home or self-care (01) ==
PROVIDERS: Emergency Provider Emergency Medicine
DX: K04.7 Periapical abscess without sinus (principal)
CPT/HCPCS: 99283

== ENCOUNTER 2022-12-21 02:17 | Emergency (ER) | payer MEDICAID, SELFPAY ==
[2022-12-21] VITALS (40 sets, daily range): BP systolic 87–126; BP diastolic 50–62; PULSE 56–110; RESP 10–27; TEMP 36.7; O2SAT 94–100
--- NOTE | 2022-12-21 02:17 | ED_ITS ---
HPI - Abdominal Pain <La Hatch DO - Last Filed: 12/22/22 04:33> General Chief Complaint: Abdominal Pain Stated Complaint: abd pain Time Seen by Provider: 12/21/22 02:21 Source: patient, EMS and RN notes reviewed Mode of arrival: EMS Limitations: no limitations History of Present Illness HPI narrative: This is a 32-year-old female on Suboxone daily with abdominal pain that started during the daytime around 2:00pm in the afternoon it is subsided then reoccurred waking the patient up from sleep this evening. She denies fevers or chills. No chest pain or shortness of breath. Was not feeling nauseated until she was riding in the ambulance and then did vomit several times. She states it actually feels better in terms of nausea currently. She describes bilateral abdominal pain upper and lower as well as bilateral back pain. Patient denies any diarrhea or constipation, denies dysuria urgency or frequency. No vaginal bleeding or discharge. Does not recall her last menses but thinks it was more than a month or 2 ago. Patient states has not had similar symptoms in the past. Denies any prior surgeries. Denies active tobacco, alcohol or illicit. No known drug allergies. States she is been taking her Suboxone regularly. Related Data Home Medications Medication Instructions Recorded Confirmed [id number] 400 mcg-om3 35 mg-dha 25 tab PO 07/19/22 07/22/22 mg-epa 5 mg-fish oil chewable tablet buprenorphine HCl 8 mg sublingual 24 mg sublingual DAILY 07/19/22 07/22/22 tablet Allergies Allergy/AdvReac Type Severity Reaction Status Date / Time No Known Drug Allergies Allergy Verified 09/26/22 10:07 Review of Systems <La Hatch DO - Last Filed: 12/22/22 04:33> Review of Systems ROS Unobtainable: All systems reviewed & are unremarkable except as noted in HPI and below Patient History <La Hatch DO - Last Filed: 12/22/22 04:33> Medical History hemorrhage (~04/03/21) Vaginal delivery (~04/03/21) Dichorionic diamniotic twin gestation Wears glasses Substance abuse (~2017) Scoliosis Chronic back pain (~2016) Chicken pox (~1995) Suboxone maintenance treatment complicating , antepartum Fall from [facility] (~2016) Surgical History No pertinent past surgical history Family History Mother No problems noted. Father No problems noted. Grandfather Diabetes mellitus Grandmother No problems noted. Sister Heart murmur Pacemaker Social History marital status: unmarried,living together number of children: 3 household members: significant other and children lives independently: Yes caregiver/support person: Yes housing: other ([facility]) pets and animals: Yes education level: high school (GED in 2018. ) occupational status: unemployed current occupational exposures/hazards: No special florencio needs: No travel history: over 6 months ago seatbelt use: always water heater temp set < 120 deg: Yes working smoke detector in home: Yes fire extinguisher in home: Yes carbon monox detector in home: Yes firearms in home: No do you feel safe at home: Yes Smoking Status: Former smoker second hand exposure: Yes (s/o smokes) alcohol intake: never (Sober since age 25) substance use type: marijuana (stopped during twin , did not restart), opiates (fentanyl) and methamphetamine during the past year weight has: remained stable well-balanced diet: daily or most days daily servings fruits/ve or more times/day caffeine: Yes (1-2 cups coffee/day) Type(s) of exercise: walking frequency: daily duration: 30-45 minutes/day Exam <La Hatch DO - Last Filed: 12/22/22 04:33> Narrative Exam Narrative: GENERAL: Alert and oriented x three, female in moderate distress. Patient has difficulty finding position of comfort. HEENT: Head normocephalic, atraumatic, EOMI, pupils reactive, face symmetric, moist mucous membranes NECK: Supple, full range of motion CARDIOVASCULAR: Regular rate and rhythm without murmurs, rubs or gallops. RESPIRATORY: Breath sounds equal bilaterally, no wheezes rales or rhonchi. ABDOMEN: Soft, generalized tenderness. Nondistended. Normoactive bowel sounds all 4 quadrants. No guarding or rebound, rigidity, no mass, no bruit or pulsatile mass. : No CVA tenderness EXTREMITIES: Normal range of motion, no clubbing or edema. Neurovascularly intact NEUROLOGICAL: Cranial nerves II through XII grossly intact. Moving all extremities. Patient stands to ambulate and walk around the room. SKIN: Warm, dry, no petechiae, no rashes or lesions. Initial Vital Signs Initial Vital Signs: Vital Signs Pulse Rate 63 12/21/22 02:21 Blood Pressure 126/58 L 12/21/22 02:21 Pulse Oximetry 99 12/21/22 02:21 <Rick Carter MD - Last Filed: 12/22/22 07:12> Initial Vital Signs Initial Vital Signs: Vital Signs Pulse Rate 63 12/21/22 02:21 Blood Pressure 126/58 L 12/21/22 02:21 Pulse Oximetry 99 12/21/22 02:21 Course <La Hatch DO - Last Filed: 12/22/22 04:33> Orders Ordered: Discontinued Medications Sodium Chloride (Normal Saline 0.9%) 1,000 mls @ 1,000 mls/hr IV BOLUS ONE Stop: 12/21/22 03:20 Last Infusion: 12/21/22 04:07 Dose: Infused Documented By: Admin: 12/21/22 02:31 Dose: 1,000 mls/hr Documented By: VIV Piperacillin Sod/Tazobactam (Sod 4.5 gm/ Sodium Chloride) 100 mls @ 200 mls/hr IV NOW ONE Stop: 12/21/22 04:10 Last Infusion: 12/21/22 05:57 Dose: Infused Documented By: Admin: 12/21/22 04:21 Dose: 200 mls/hr Documented By: VIV Lactated Ringer's (Lactated Ringers) 1,000 mls @ 150 mls/hr IV CONT LUZ ELENA Last Infusion: 12/21/22 19:15 Dose: Infused Documented By: Admin: 12/21/22 12:10 Dose: 150 mls/hr Documented By: DKAgustina Infusion: 12/21/22 11:46 Dose: Infused Documented By: DKAgustina Admin: 12/21/22 05:05 Dose: 150 mls/hr Documented By: VIV POTASSIUM CHLORIDE IN WATER (Potassium Cl 10 Meq/100 Ml Chantel) 10 meq in 100 mls @ 100 mls/hr IV Q1H LUZ ELENA Stop: 12/21/22 08:14 Last Infusion: 12/21/22 09:50 Dose: Infused Documented By: Admin: 12/21/22 08:49 Dose: 100 mls/hr Documented By: Infusion: 12/21/22 08:20 Dose: Infused Documented By: Admin: 12/21/22 07:15 Dose: 100 mls/hr Documented By: Infusion: 12/21/22 07:15 Dose: Infused Documented By: Admin: 12/21/22 06:16 Dose: 100 mls/hr Documented By: Infusion: 12/21/22 06:05 Dose: Infused Documented By: Admin: 12/21/22 05:05 Dose: 100 mls/hr Documented By: VIV Ketorolac Tromethamine (Ketorolac 30 Mg/Ml Vial) 30 mg IV NOW ONE Stop: 12/21/22 02:22 Last Admin: 12/21/22 02:32 Dose: 30 mg Documented By: VIV Ondansetron HCl (Ondansetron 4 Mg/2 Ml Inj) 4 mg IV NOW ONE Stop: 12/21/22 02:22 Last Admin: 12/21/22 02:32 Dose: 4 mg Documented By: VIV Potassium Chloride (Potassium Chloride 20 Meq/15 Ml Udc) 40 meq PO NOW ONE Stop: 12/21/22 02:55 Last Admin: 12/21/22 03:10 Dose: 40 meq Documented By: VIV Vital Signs Vital signs: Vital Signs - 8 hr 12/21/22 10:00 12/21/22 10:51 12/21/22 10:52 Pulse Rate 89 89 Respiratory Rate 10 L Blood Pressure 110/58 L Pulse Oximetry 97 12/21/22 10:52 12/21/22 11:00 12/21/22 11:00 Pulse Rate 93 H 92 H Respiratory Rate 15 19 Blood Pressure 102/57 L Pulse Oximetry 98 98 12/21/22 11:30 12/21/22 12:00 12/21/22 12:00 Pulse Rate 90 89 Respiratory Rate 24 19 Blood Pressure 100/50 L Pulse Oximetry 99 98 12/21/22 12:30 12/21/22 12:30 12/21/22 13:00 Pulse Rate 90 93 H Respiratory Rate 18 20 Blood Pressure 100/52 L Pulse Oximetry 98 97 12/21/22 13:00 12/21/22 13:30 12/21/22 13:30 Pulse Rate 92 H Respiratory Rate 22 Blood Pressure 99/51 L 104/56 L Pulse Oximetry 97 12/21/22 14:00 12/21/22 14:00 12/21/22 14:30 Pulse Rate 92 H 102 H Respiratory Rate 22 19 Blood Pressure 107/58 L Pulse Oximetry 96 95 12/21/22 14:30 12/21/22 15:00 12/21/22 15:00 Pulse Rate 100 H Respiratory Rate 18 Blood Pressure 107/55 L 109/55 L Pulse Oximetry 94 12/21/22 15:30 12/21/22 15:30 12/21/22 16:00 Pulse Rate 101 H 107 H Respiratory Rate 21 15 Blood Pressure 105/51 L Pulse Oximetry 94 96 12/21/22 16:01 12/21/22 16:01 12/21/22 16:30 Pulse Rate 103 H 110 H Respiratory Rate 22 24 Blood Pressure 105/55 L Pulse Oximetry 95 96 12/21/22 16:30 12/21/22 17:00 12/21/22 17:00 Pulse Rate 88 Respiratory Rate 16 Blood Pressure 107/58 L 100/52 L Pulse Oximetry 96 <Rick Carter MD - Last Filed: 12/22/22 07:12> Orders Ordered: Discontinued Medications Sodium Chloride (Normal Saline 0.9%) 1,000 mls @ 1,000 mls/hr IV BOLUS ONE Stop: 12/21/22 03:20 Last Infusion: 12/21/22 04:07 Dose: Infused Documented By: Admin: 12/21/22 02:31 Dose: 1,000 mls/hr Documented By: VIV Piperacillin Sod/Tazobactam (Sod 4.5 gm/ Sodium Chloride) 100 mls @ 200 mls/hr IV NOW ONE Stop: 12/21/22 04:10 Last Infusion: 12/21/22 05:57 Dose: Infused Documented By: Admin: 12/21/22 04:21 Dose: 200 mls/hr Documented By: VIV Lactated Ringer's (Lactated Ringers) 1,000 mls @ 150 mls/hr IV CONT LUZ ELENA Last Infusion: 12/21/22 19:15 Dose: Infused Documented By: Admin: 12/21/22 12:10 Dose: 150 mls/hr Documented By: Infusion: 12/21/22 11:46 Dose: Infused Documented By: Admin: 12/21/22 05:05 Dose: 150 mls/hr Documented By: VIV POTASSIUM CHLORIDE IN WATER (Potassium Cl 10 Meq/100 Ml Chantel) 10 meq in 100 mls @ 100 mls/hr IV Q1H LUZ ELENA Stop: 12/21/22 08:14 Last Infusion: 12/21/22 09:50 Dose: Infused Documented By: Admin: 12/21/22 08:49 Dose: 100 mls/hr Documented By: Infusion: 12/21/22 08:20 Dose: Infused Documented By: Admin: 12/21/22 07:15 Dose: 100 mls/hr Documented By: Infusion: 12/21/22 07:15 Dose: Infused Documented By: Admin: 12/21/22 06:16 Dose: 100 mls/hr Documented By: Infusion: 12/21/22 06:05 Dose: Infused Documented By: Admin: 12/21/22 05:05 Dose: 100 mls/hr Documented By: VIV Ketorolac Tromethamine (Ketorolac 30 Mg/Ml Vial) 30 mg IV NOW ONE Stop: 12/21/22 02:22 Last Admin: 12/21/22 02:32 Dose: 30 mg Documented By: VIV Ondansetron HCl (Ondansetron 4 Mg/2 Ml Inj) 4 mg IV NOW ONE Stop: 12/21/22 02:22 Last Admin: 12/21/22 02:32 Dose: 4 mg Documented By: VIV Potassium Chloride (Potassium Chloride 20 Meq/15 Ml Udc) 40 meq PO NOW ONE Stop: 12/21/22 02:55 Last Admin: 12/21/22 03:10 Dose: 40 meq Documented By: VIV Vital Signs Vital signs: Vital Signs - 8 hr 12/21/22 10:00 12/21/22 10:51 12/21/22 10:52 Pulse Rate 89 89 Respiratory Rate 10 L Blood Pressure 110/58 L Pulse Oximetry 97 12/21/22 10:52 12/21/22 11:00 12/21/22 11:00 Pulse Rate 93 H 92 H Respiratory Rate 15 19 Blood Pressure 102/57 L Pulse Oximetry 98 98 12/21/22 11:30 12/21/22 12:00 12/21/22 12:00 Pulse Rate 90 89 Respiratory Rate 24 19 Blood Pressure 100/50 L Pulse Oximetry 99 98 12/21/22 12:30 12/21/22 12:30 12/21/22 13:00 Pulse Rate 90 93 H Respiratory Rate 18 20 Blood Pressure 100/52 L Pulse Oximetry 98 97 12/21/22 13:00 12/21/22 13:30 12/21/22 13:30 Pulse Rate 92 H Respiratory Rate 22 Blood Pressure 99/51 L 104/56 L Pulse Oximetry 97 12/21/22 14:00 12/21/22 14:00 12/21/22 14:30 Pulse Rate 92 H 102 H Respiratory Rate 22 19 Blood Pressure 107/58 L Pulse Oximetry 96 95 12/21/22 14:30 12/21/22 15:00 12/21/22 15:00 Pulse Rate 100 H Respiratory Rate 18 Blood Pressure 107/55 L 109/55 L Pulse Oximetry 94 12/21/22 15:30 12/21/22 15:30 12/21/22 16:00 Pulse Rate 101 H 107 H Respiratory Rate 21 15 Blood Pressure 105/51 L Pulse Oximetry 94 96 12/21/22 16:01 12/21/22 16:01 12/21/22 16:30 Pulse Rate 103 H 110 H Respiratory Rate 22 24 Blood Pressure 105/55 L Pulse Oximetry 95 96 12/21/22 16:30 12/21/22 17:00 12/21/22 17:00 Pulse Rate 88 Respiratory Rate 16 Blood Pressure 107/58 L 100/52 L Pulse Oximetry 96 MDM - Abdominal Pain <La Hatch, DO - Last Filed: 12/22/22 04:33> Lab Data 12/21/22 02:30 12/21/22 02:30 Labs: Lab Results 12/21/22 12/21/22 Range/Units 02:30 02:55 WBC 7.9 (4.5-11.0) X10^3/uL RBC 4.22 (4.0-5.2) X10^6/uL Hgb 12.3 (12.0-16.0) g/dL Hct 35.9 L (36-46) % MCV 85.0 (80-100) fL MCH 29.2 (26-34) PG MCHC 34.3 (30-36) % RDW 14.6 (11.6-14.8) % Plt Count 247 (150-400) X10^3/uL Neut % (Auto) 64.3 (50-75) % Lymph % (Auto) 27.4 (25-40) % [place] % (Auto) 3.9 (3-14) % Eos % (Auto) 4.0 (2-4) % Baso % (Auto) 0.4 (0-2) % Neut # (Auto) 5000 (2861-2989) /uL Lymph # (Auto) 2200 (2605-3385) /uL C[place]shaw # (Auto) 300 (0-900) /uL Eos # (Auto) 300 (0-450) /uL Baso # (Auto) 0 (0-100) /uL Sodium 139 (137-145) mmol/L Potassium 2.9 L (3.4-5.1) mmol/L Chloride 108 H (98-107) mmol/L Carbon Dioxide 21 L (22-32) mmol/L BUN 7 (7-17) mg/dL Creatinine 0.63 (0.52-1.04) mg/dL Estimated GFR > 60 (>60) mL/min BUN/Creatinine Ratio 11.1 (6-22) Glucose 114 H (70-100) mg/dL Calcium 8.5 (8.4-10.2) mg/dL Total Bilirubin 0.6 (0.2-1.3) mg/dL AST 50 H (14-36) IU/L ALT 66 H (<35) IU/L Alkaline Phosphatase 76 (38-126) U/L Total Protein 7.5 (6.3-8.2) g/dL Albumin 4.1 (3.5-5.0) g/dL Globulin 3.4 (1.7-4.1) g/dL Albumin/Globulin Ratio 1.2 (1.0-2.8) Lipase 196 (23-300) U/L Serum , Qual Negative (Negative) U Opiates 300ng/mL cut Negative (Negative) Ur Oxycodone Screen Negative (Negative) Urine Methadone Screen Negative (Negative) Ur Barbiturates Screen Negative (Negative) U Tricyclic Antidepress Negative (Negative) Ur Phencyclidine Scrn Negative (Negative) Ur Amphetamines Screen Negative (Negative) U Methamphetamines Scrn Negative (Negative) Ur MDMA Scrn (Ecstasy) Negative (Negative) U Benzodiazepines Scrn Negative (Negative) Urine Cocaine Screen Negative (Negative) U Marijuana (THC) Screen Negative (Negative) Point of care testing: Urine Dip Bedside Urine Glucose Negative Bedside Urine Bilirubin - Negative Bedside Urine Ketone - Negative Urine Specific [place] 1.010 Bedside Urine Occult Blood - Negative Bedside Urine pH 6.0 Bedside Urine Protein - Negative Bedside Urine Urobilinogen - Negative Bedside Urine Nitrite - Negative Bedside Urine Leukocytes - Negative Esterase ECG Data Attestation: I personally reviewed and interpreted this ECG as follows: Prior ECG tracings: not available for review Interpretation: Sinus bradycardia rate of 59 P 142 QRS of 92 QTC 491. No acute ST elevation, nonspecific change. No priors for comparison. MDM Narrative Medical decision making narrative: Patient tolerated oral potassium without issue. She is feeling more comfortable after Toradol IV and fluids. HR persistently in the 60s shortly after initial evaluation. Patient states that she was not having any vomiting before she was transported by EMS. She is not had issues with low potassium in the past. CBC appears appropriate hemoglobin of 12 she was 6.8 in March of 2021 after hemorrhage. Sodium is 139 chloride 108 carbon dioxide 21 with BUN of 7 and creatinine 0.63 glucose is 114 AST is 50 with an ALT of 66, otherwise negative LFTs. Serum is negative. POC urine is negative. Discussed with patient would like to CT abdomen pelvis she is got generalized tenderness. Patient is agreeable. Imaging shows gallbladder distention with questionable gallbladder wall thickening and pericholecystic fluid findings highly suspicious for acute cholecystitis intra and extrahepatic biliary ductal dilation with abrupt tapering of the distal common bile duct relayed to possible choledocholithiasis or ampullary stenosis recommend MRCP/ERCP for further eval. No evidence of colitis, diverticulitis bowel obstruction, obstructive uropathy or acute appendicitis. Patient had tolerated p.o. potassium but we will give additional dose via K rider, continue with fluids, Zosyn and plan for MRCP later this morning when MRI is available around 0700. Patient updated on current findings. Patient signed out to Dr. Carter while awaiting MRCP for final disposition for inpatient admission versus transfer for ERCP. December 21, 2022 7:00 a.m. Raul: ?sign out from Dr Hatch, patient nausea and pain controlled at this time. Patient awaiting MRCP.. Otherwise may stay here if negative MRCP. 7:30 a.m.. Patient resting comfortably. No distress. Awaiting for MRCP. 10:[address] Gong. He is currently in surgery. He will call back at 11:00 a.m.. MRI/MRCP will not be available until 3:00 p.m. today. 1:30 p.m.. Spoke with [facility], dr fox, hospitalist, she agrees to accept patient when bed available 5:40 p.m.. Bed available at [facility]. Patient does agree and understand need for transfer for ERCP. There is only a few hospitalist that can do this with beds available. <Rick Carter MD - Last Filed: 12/22/22 07:12> Lab Data Labs: Lab Results 12/21/22 12/21/22 Range/Units 02:30 02:55 WBC 7.9 (4.5-11.0) X10^3/uL RBC 4.22 (4.0-5.2) X10^6/uL Hgb 12.3 (12.0-16.0) g/dL Hct 35.9 L (36-46) % MCV 85.0 (80-100) fL MCH 29.2 (26-34) PG MCHC 34.3 (30-36) % RDW 14.6 (11.6-14.8) % Plt Count 247 (150-400) X10^3/uL Neut % (Auto) 64.3 (50-75) % Lymph % (Auto) 27.4 (25-40) % [place] % (Auto) 3.9 (3-14) % Eos % (Auto) 4.0 (2-4) % Baso % (Auto) 0.4 (0-2) % Neut # (Auto) 5000 (1581-8319) /uL Lymph # (Auto) 2200 (8447-9362) /uL [place] # (Auto) 300 (0-900) /uL Eos # (Auto) 300 (0-450) /uL Baso # (Auto) 0 (0-100) /uL Sodium 139 (137-145) mmol/L Potassium 2.9 L (3.4-5.1) mmol/L Chloride 108 H (98-107) mmol/L Carbon Dioxide 21 L (22-32) mmol/L BUN 7 (7-17) mg/dL Creatinine 0.63 (0.52-1.04) mg/dL Estimated GFR > 60 (>60) mL/min BUN/Creatinine Ratio 11.1 (6-22) Glucose 114 H (70-100) mg/dL Calcium 8.5 (8.4-10.2) mg/dL Total Bilirubin 0.6 (0.2-1.3) mg/dL AST 50 H (14-36) IU/L ALT 66 H (<35) IU/L Alkaline Phosphatase 76 (38-126) U/L Total Protein 7.5 (6.3-8.2) g/dL Albumin 4.1 (3.5-5.0) g/dL Globulin 3.4 (1.7-4.1) g/dL Albumin/Globulin Ratio 1.2 (1.0-2.8) Lipase 196 (23-300) U/L Serum , Qual Negative (Negative) U Opiates 300ng/mL cut Negative (Negative) Ur Oxycodone Screen Negative (Negative) Urine Methadone Screen Negative (Negative) Ur Barbiturates Screen Negative (Negative) U Tricyclic Antidepress Negative (Negative) Ur Phencyclidine Scrn Negative (Negative) Ur Amphetamines Screen Negative (Negative) U Methamphetamines Scrn Negative (Negative) Ur MDMA Scrn (Ecstasy) Negative (Negative) U Benzodiazepines Scrn Negative (Negative) Urine Cocaine Screen Negative (Negative) U Marijuana (THC) Screen Negative (Negative) Point of care testing: Urine Dip Bedside Urine Glucose Negative Bedside Urine Bilirubin - Negative Bedside Urine Ketone - Negative Urine Specific [place] 1.010 Bedside Urine Occult Blood - Negative Bedside Urine pH 6.0 Bedside Urine Protein - Negative Bedside Urine Urobilinogen - Negative Bedside Urine Nitrite - Negative Bedside Urine Leukocytes - Negative Esterase Imaging Data MRCP: Radiologist's Impression: [address] [id number] Magnetic Resonance Report Signed Patient: Darlin Melvin MR#: [id number] : 1990 Acct:[id number] Age/Sex: 32 / F Date of Service: 12/21/22 Loc: ED Accession Number: [id number] Procedure: MR abdomen wo/w con Ordering Provider: La Hatch D.O. PROCEDURE: MR ABDOMEN WO/W CON INDICATIONS: abd pain, vomiting, abrupt tapering distal CBD. TECHNIQUE: Coronal HASTE, axial 2D FLASH in- and [id number]; axial breath-hold T2 FSE. Dynamic axial VIBE during the administration of contrast; post-contrast coronal VIBE or 2D FLASH with fat saturation from the hepatic dome to the iliac crests. Optional diffusion weighted imaging and ADC may be performed. COMPARISON: [facility], CT, CT ABDOMEN PELVIS W CON, 12/21/2022, 3:36. FINDINGS: Image quality: Motion degraded Lower chest: Lungs are not well evaluated on this study. No basal effusions. Normal heart size. Possible small hiatal hernia. Solid organs: Right lobe liver cyst. Liver otherwise appears unremarkable. Is Is the gallbladder is distended. There is pericholecystic fluid. There is also distention of the cystic duct. There are questionable small filling defects in the cystic duct. There are suspected small filling defects in the distal CBD. No pathologic pancreatic ductal dilation. No splenomegaly. No hydronephrosis or adrenal nodules. Vessels and lymph nodes: No pathologic lymph nodes by size criteria. No abdominal aortic aneurysm. Bowel and peritoneum: No small bowel obstruction. No pathologic ascites or drainable abscess. Body wall: Small fat containing umbilical hernia. Bones: No acute or suspicious osseous finding. IMPRESSION: Distended gallbladder with surrounding inflammatory changes. Questionable small cystic duct filling defects. Findings remain suspicious for cholecystitis. Consider ultrasound correlation to see if there is a sonographic Bond sign, versus nuclear medicine HIDA study. Dilated biliary system with suspected distal CBD filling defects, possibly choledocholithiasis. Other findings as above. Motion degraded MRI. Dictated by: Derick Jimenez M.D. on 12/21/2022 at 11:15 Approved by: Derick Jimenez M.D. on 12/21/2022 at 11:21 CT scan - abdomen/pelvis: Radiologist's Impression: [address] [address] [address] Scan Report Signed Patient: Darlin Melvin MR#: [id number] : 1990 Acct:[id number] Age/Sex: 32 / F Date of Service: 12/21/22 Loc: ED Accession Number: [id number] Procedure: CT abdomen pelvis w con Ordering Provider: La Hatch D.O. PROCEDURE: CT ABDOMEN PELVIS W CON INDICATIONS: abd pain, sudden onset upper and lower abd TECHNIQUE: After the administration of oral and IV contrast, axial sections were acquired from the lung bases to the pubic symphysis. Coronal and sagittal reformats were performed. For radiation dose reduction, the following was used: automated exposure control, adjustment of mA and/or kV according to patient size. COMPARISON: None. FINDINGS: Image quality: Excellent. Lung bases: Unremarkable. Heart: No significant findings. ABDOMEN: Liver: No masses. Gallbladder: Distended gallbladder with pericholecystic fluid. Wall thickening and possible occasional calcifications in the cystic duct and dependently in the fundus. Biliary ducts: Moderate central intrahepatic biliary dilatation. Marked extrahepatic biliary dilatation with a blunt ending of the common duct. Pancreas: The pancreas is normal. The pancreatic duct is nondilated at 3 mm. Spleen: Normal. Adrenal Glands: No nodules. Kidneys and Ureters: Symmetric enhancement. Occasional punctate bilateral nonobstructing intrarenal calculi. No hydronephrosis. No hydroureter. Stomach and Bowel: Stomach, small bowel loops, and colon are unremarkable. Normal size appendix contains hyperdense material. No periappendiceal inflammation. Peritoneum: No free intraperitoneal air. Trace pelvic fluid. Ventral Wall: Tiny fat containing umbilical hernia. Abdominal Nodes: No retroperitoneal or mesenteric adenopathy by size criteria. Vessels: Aorta and inferior vena cava are normal in size. PELVIS: Pelvic Organs: Anteverted uterus has a normal CT appearance. Ovaries demonstrate normal CT contour. No suspicious adnexal mass. Bladder: Unremarkable. Pelvic Nodes: No enlarged lymph nodes. Miscellaneous: No inguinal hernias are seen. Bones: No suspicious bone lesions. 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 IMPRESSION: 1. Findings suspicious for acute cholecystitis and possible distal common duct obstruction. 2. MRCP has been scheduled. 3. Nonobstructing punctate bilateral nephrolithiasis. 4. Final interpretation is concordant with preliminary report. Dictated by: Meagan Hampton M.D. on 12/21/2022 at 8:11 Approved by: Meagan Hampton M.D. on 12/21/2022 at 8:20 MDM Narrative Medical decision making narrative: Patient tolerated oral potassium without issue. She is feeling more comfortable after Toradol IV and fluids. HR persistently in the 60s shortly after initial evaluation. Patient states that she was not having any vomiting before she was transported by EMS. She is not had issues with low potassium in the past. CBC appears appropriate hemoglobin of 12 she was 6.8 in March of 2021 after hemorrhage. Sodium is 139 chloride 108 carbon dioxide 21 with BUN of 7 and creatinine 0.63 glucose is 114 AST is 50 with an ALT of 66, otherwise negative LFTs. Serum is negative. POC urine is negative. Discussed with patient would like to CT abdomen pelvis she is got generalized tenderness. Patient is agreeable. Imaging shows gallbladder distention with questionable gallbladder wall thickening and pericholecystic fluid findings highly suspicious for acute cholecystitis intra and extrahepatic biliary ductal dilation with abrupt tapering of the distal common bile duct relayed to possible choledocholithiasis or ampullary stenosis recommend MRCP/ERCP for further eval. No evidence of colitis, diverticulitis bowel obstruction, obstructive uropathy or acute appendicitis. Patient had tolerated p.o. potassium but we will give additional dose via K rider, continue with fluids, Zosyn and plan for MRCP later this morning when MRI is available around 0700. Patient updated on current findings. Patient signed out to Dr. Carter while awaiting MRCP for final disposition. December 21, 2022 7:00 a.m. Raul: ?sign out from Dr Hatch, patient nausea and pain controlled at this time. Patient awaiting MRCP.. Otherwise may stay here if negative MRCP. 7:30 a.m.. Patient resting comfortably. No distress. Awaiting for MRCP. 10:[address] Gong. He is currently in surgery. He will call back at 11:00 a.m.. MRI/MRCP will not be available until 3:00 p.m. today. 1:30 p.m.. Spoke with [facility], dr fox, hospitalist, she agrees to accept patient when bed available 5:40 p.m.. Bed available at [facility]. Patient does agree and understand need for transfer for ERCP. There is only a few hospitalist that can do this with beds available. Critical Care Time <La Hatch, DO - Last Filed: 12/22/22 04:33> Critical Care Time Critical Care Time: Yes Total Critical Care Time: 45 Attestation: The high probability of a clinically significant, sudden or life threatening deterioration of the [gi, cardiac] system(s) required my full and direct attention, intervention and personal management. The aggregate critical care time was [45] minutes. This time is in addition to time spent performing reported procedures but includes the following: [x] Data Review and interpretation [x] Patient assessment and monitoring of vital signs [x] Documentation [x] Medication orders and management Discharge Plan Departure Patient Disposition: [facility] Clinical Impression: Hypokalemia, Cholecystitis, Biliary calculi, common bile duct Prescriptions: No Action [id number] oil 400 mcg-35 mg -25 mg-5 mg tablet,chewable PO buprenorphine HCl 8 mg tablet, sublingual 24 mg sublingual DAILY Referrals: Miscellaneous,Doctor, MD [Primary Care Provider] -
--- NOTE | 2022-12-21 02:22 | DI.CT.S_ITS ---
PROCEDURE: CT ABDOMEN PELVIS W CON INDICATIONS: abd pain, sudden onset upper and lower abd TECHNIQUE: After the administration of oral and IV contrast, axial sections were acquired from the lung bases to the pubic symphysis. Coronal and sagittal reformats were performed. For radiation dose reduction, the following was used: automated exposure control, adjustment of mA and/or kV according to patient size. COMPARISON: None. FINDINGS: Image quality: Excellent. Lung bases: Unremarkable. Heart: No significant findings. ABDOMEN: Liver: No masses. Gallbladder: Distended gallbladder with pericholecystic fluid. Wall thickening and possible occasional calcifications in the cystic duct and dependently in the fundus. Biliary ducts: Moderate central intrahepatic biliary dilatation. Marked extrahepatic biliary dilatation with a blunt ending of the common duct. Pancreas: The pancreas is normal. The pancreatic duct is nondilated at 3 mm. Spleen: Normal. Adrenal Glands: No nodules. Kidneys and Ureters: Symmetric enhancement. Occasional punctate bilateral nonobstructing intrarenal calculi. No hydronephrosis. No hydroureter. Stomach and Bowel: Stomach, small bowel loops, and colon are unremarkable. Normal size appendix contains hyperdense material. No periappendiceal inflammation. Peritoneum: No free intraperitoneal air. Trace pelvic fluid. Ventral Wall: Tiny fat containing umbilical hernia. Abdominal Nodes: No retroperitoneal or mesenteric adenopathy by size criteria. Vessels: Aorta and inferior vena cava are normal in size. PELVIS: Pelvic Organs: Anteverted uterus has a normal CT appearance. Ovaries demonstrate normal CT contour. No suspicious adnexal mass. Bladder: Unremarkable. Pelvic Nodes: No enlarged lymph nodes. Miscellaneous: No inguinal hernias are seen. Bones: No suspicious bone lesions. 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 IMPRESSION: 1. Findings suspicious for acute cholecystitis and possible distal common duct obstruction. 2. MRCP has been scheduled. 3. Nonobstructing punctate bilateral nephrolithiasis. 4. Final interpretation is concordant with preliminary report. Dictated by: Meagan Hampton M.D. on 12/21/2022 at 8:11 Approved by: Meagan Hampton M.D. on 12/21/2022 at 8:20
[2022-12-21] MEDS: SODIUM CHLORIDE 0.9% 1,000 ML 1000 ML IV (02:31)
[2022-12-21] MEDS: KETOROLAC 30 MG/ML VIAL IV (02:32)
[2022-12-21] MEDS: ONDANSETRON 4 MG/2 ML INJ IV (02:32)
[2022-12-21 02:41] LABS: Add Manual Diff / Slide Review NO; Basophils Absolute Auto 0 /uL (0-100); Basophils Percent Auto 0.4 % (0-2); Eosinophils Absolute Auto 300 /uL (0-450); Hematocrit 35.9 % (36-46); Hemoglobin 12.3 g/dL (12.0-16.0); Lymphocytes Absolute Auto 2200 /uL (1100-4500); Lymphocytes Percent Auto 27.4 % (25-40); Mean Corpuscular HGB Conc 34.3 % (30-36); Mean Corpuscular Hemoglobin 29.2 PG (26-34); Monocytes Absolute Auto 300 /uL (0-900); Monocytes Percent Auto 3.9 % (3-14); Neutrophils Absolute Auto 5000 /uL (1500-7000); Neutrophils Percent Auto 64.3 % (50-75); Platelet Count 247 X10^3/uL (150-400); Red Blood Cell Count 4.22 X10^6/uL (4.0-5.2); Red Cell Distribution Width 14.6 % (11.6-14.8); White Blood Cell Count 7.9 X10^3/uL (4.5-11.0)
[2022-12-21 02:52] LABS: Alanine Aminotransferase 66 IU/L (<35); Albumin 4.1 g/dL (3.5-5.0); Albumin Globulin Ratio 1.2 (1.0-2.8); Alkaline Phosphatase 76 U/L (38-126); Aspartate Aminotransferase 50 IU/L (14-36); BUN Creatinine Ratio 11.1 (6-22); Bilirubin Total 0.6 mg/dL (0.2-1.3); Blood Urea Nitrogen 7 mg/dL (7-17); Calcium 8.5 mg/dL (8.4-10.2); Carbon Dioxide 21 mmol/L (22-32); Chloride 108 mmol/L (98-107); Estimated Glomerular Filt Rate > 60 mL/min (>60); Globulin 3.4 g/dL (1.7-4.1); Glucose 114 mg/dL (70-100); HEMOLYSIS < 15 (0-50); Lipase 196 U/L (23-300); Potassium 2.9 mmol/L (3.4-5.1); Sodium 139 mmol/L (137-145); Total Protein 7.5 g/dL (6.3-8.2)
[2022-12-21 03:01] LABS: Pregnancy Test Serum,Qual Negative (Negative)
[2022-12-21 03:07] LABS: UR Morphine/Opiate cutoff 300 Negative (Negative); Ur Creatinine 20 (Normal); Ur Specific Gravity 1.025 (Normal); Urine Amphetamines Negative (Negative); Urine Barbiturates Negative (Negative); Urine Benzodiazepines Negative (Negative); Urine Cocaine Negative (Negative); Urine MDMA Negative (Negative); Urine Methadone Negative (Negative); Urine Methamphetamines Negative (Negative); Urine Oxycodone Negative (Negative); Urine Phencyclidine Negative (Negative); Urine Tetrahydrocannabinol Negative (Negative); Urine Tricyclic Antidepressant Negative (Negative); Urine pH 5 (Normal)
[2022-12-21] MEDS: POTASSIUM CHLORIDE 20 MEQ/15 ML UDC 40 MEQ PO (03:10)
--- NOTE | 2022-12-21 04:09 | DI.MRI.S_ITS ---
PROCEDURE: MR ABDOMEN WO/W CON INDICATIONS: abd pain, vomiting, abrupt tapering distal CBD. TECHNIQUE: Coronal HASTE, axial 2D FLASH in- and [id number]; axial breath-hold T2 FSE. Dynamic axial VIBE during the administration of contrast; post-contrast coronal VIBE or 2D FLASH with fat saturation from the hepatic dome to the iliac crests. Optional diffusion weighted imaging and ADC may be performed. COMPARISON: [facility], CT, CT ABDOMEN PELVIS W CON, 12/21/2022, 3:36. FINDINGS: Image quality: Motion degraded Lower chest: Lungs are not well evaluated on this study. No basal effusions. Normal heart size. Possible small hiatal hernia. Solid organs: Right lobe liver cyst. Liver otherwise appears unremarkable. Is Is the gallbladder is distended. There is pericholecystic fluid. There is also distention of the cystic duct. There are questionable small filling defects in the cystic duct. There are suspected small filling defects in the distal CBD. No pathologic pancreatic ductal dilation. No splenomegaly. No hydronephrosis or adrenal nodules. Vessels and lymph nodes: No pathologic lymph nodes by size criteria. No abdominal aortic aneurysm. Bowel and peritoneum: No small bowel obstruction. No pathologic ascites or drainable abscess. Body wall: Small fat containing umbilical hernia. Bones: No acute or suspicious osseous finding. IMPRESSION: Distended gallbladder with surrounding inflammatory changes. Questionable small cystic duct filling defects. Findings remain suspicious for cholecystitis. Consider ultrasound correlation to see if there is a sonographic Bond sign, versus nuclear medicine HIDA study. Dilated biliary system with suspected distal CBD filling defects, possibly choledocholithiasis. Other findings as above. Motion degraded MRI. Dictated by: Derick Jimenez M.D. on 12/21/2022 at 11:15 Approved by: Derick Jimenez M.D. on 12/21/2022 at 11:21
[2022-12-21] MEDS: PIPERACILLIN/TAZO 4.5 GM in SODIUM CHLORIDE 0.9% 100 ML IV (04:21)
[2022-12-21] MEDS: LACTATED RINGERS 1,000 ML 150 ML IV ×2 (05:05→12:10)
[2022-12-21] MEDS: POTASSIUM CHLORIDE IN WATER 10 MEQ/100 ML PIGGYBACK 100 MEQ IV ×4 (05:05→08:49)
== END 2022-12-21 19:20 | disposition short-term general hospital (02) ==
PROVIDERS: Emergency Medicine; Emergency Provider Emergency Medicine
DX: K80.40 Calculus of bile duct with cholecystitis, unspecified, without obstruction (principal); E87.6 Hypokalemia; R10.9 Unspecified abdominal pain
CPT/HCPCS: 36415; 74177; 74183; 80053; 80305; 81003; 83690; 84703; 85025; 93005; 96361; 96365; 96366; 96367; 96375; 99285; 99291; J1885; J2405; J2543; Q9967

== ENCOUNTER 2024-06-10 11:02 | Emergency (ER) | payer MEDICAID, SELFPAY ==
[2024-06-10 11:14] VITALS: BP 110/65; PULSE 80; RESP 16; TEMP 36.6; O2SAT 98; BMI 25.9
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
== END 2024-06-10 13:20 | disposition home or self-care (01) ==
PROVIDERS: Emergency Provider Physician Assistant Medical
DX: T24.212A Burn of second degree of left thigh, initial encounter (principal); X19.XXXA Contact with other heat and hot substances, initial encounter
CPT/HCPCS: 99281; 99283

== ENCOUNTER 2024-06-13 19:21 | Observation (INO) | payer MEDICAID, SELFPAY ==
[2024-06-13 19:34] VITALS: BP 124/68; PULSE 80; RESP 18; TEMP 36.6; O2SAT 98; BMI 27.0
[2024-06-13] MEDS: ONDANSETRON 4 MG/2 ML INJ IV (20:05)
[2024-06-13 20:07] LABS: Add Manual Diff / Slide Review NO; Basophils Absolute Auto 0 /uL (0-100); Basophils Percent Auto 0.2 % (0-2); Eosinophils Absolute Auto 0 /uL (0-450); Lymphocytes Absolute Auto 1000 /uL (1100-4500); Lymphocytes Percent Auto 10.3 % (25-40); Mean Corpuscular HGB Conc 34.1 % (30-36); Mean Corpuscular Hemoglobin 28.8 PG (26-34); Mean Corpuscular Volume 84.3 fL (80-100); Monocytes Absolute Auto 700 /uL (0-900); Neutrophils Absolute Auto 8000 /uL (1500-7000); Neutrophils Percent Auto 82.5 % (50-75); Platelet Count 189 X10^3/uL (150-400); Red Blood Cell Count 4.51 X10^6/uL (4.0-5.2); Red Cell Distribution Width 14.6 % (11.6-14.8); White Blood Cell Count 9.7 X10^3/uL (4.5-11.0)
[2024-06-13 20:17] LABS: Alanine Aminotransferase 32 IU/L (<35); Albumin 4.8 g/dL (3.5-5.0); Albumin Globulin Ratio 1.5 (1.0-2.8); Alkaline Phosphatase 74 U/L (38-126); Aspartate Aminotransferase 55 IU/L (14-36); BUN Creatinine Ratio 7.5 (6-22); Bilirubin Total 1.3 mg/dL (0.2-1.3); Blood Urea Nitrogen 5 mg/dL (7-17); Calcium 8.4 mg/dL (8.4-10.2); Carbon Dioxide 16 mmol/L (22-32); Chloride 108 mmol/L (98-107); Estimated Glomerular Filt Rate > 60 mL/min (>60); Globulin 3.1 g/dL (1.7-4.1); Glucose 137 mg/dL (70-100); HEMOLYSIS 16 (0-50); Lipase 164 U/L (23-300); Sodium 139 mmol/L (137-145); Total Protein 7.9 g/dL (6.3-8.2)
[2024-06-13 20:23] LABS: Potassium 2.8 mmol/L (3.4-5.1)
[2024-06-13 20:29] LABS: Influenza A - CEPHEID Flu A NEGATIVE (NEGATIVE); Influenza B - CEPHEID Flu B POSITIVE (NEGATIVE); Respiratory Syncytial Virus Negative (Negative)
[2024-06-13 20:31] LABS: COVID-19 CEPHEID 4-PLEX PCR Negative (Negative)
[2024-06-13] MEDS: diphenhydrAMINE 50 MG/ML VIAL 25 MG IV (20:46)
[2024-06-13] MEDS: METOCLOPRAMIDE 10 MG/2 ML INJ IV (20:46)
[2024-06-13] MEDS: SODIUM CHLORIDE 0.9% 1,000 ML 1000 ML IV (20:46)
--- NOTE | 2024-06-13 21:50 | PC.NURSE ---
Pt resting quielty with eyes closed, resps even and not labored. No distress noted at this time.
[2024-06-13 23:02] VITALS: BP 111/84; PULSE 72; RESP 16; O2SAT 97
[2024-06-13 23:10] LABS: Pregnancy Test Urine Negative (Negative)
[2024-06-13 23:12] LABS: Bacteria Urine Few (2-10); RBC Urine 1-5/HPF (0-5/HPF); Squamous Epithelial Cell Urine 1-5 /HPF (0-5/HPF); Urine Volume 10mL (spun); WBC Urine 0-1/HPF (0-5/HPF)
[2024-06-13 23:13] LABS: Culture Indicated Urine Cult Not Indicated; Mucus Urine 1+ (Negative)
--- NOTE | 2024-06-13 23:20 | ED_ITS ---
HPI - Nausea/Vomiting/Diarrhea General Chief complaint: Nausea/Vomiting/Diarrhea Stated complaint: Numbness in hands, feverish Time Seen by Provider: 06/13/24 23:20 Source: patient Mode of arrival: Ambulatory History of Present Illness HPI Narrative: 54-year-old female past medical history of no significance presents to the emergency department from home for evaluation of flu-like symptoms, states he has been having nausea and vomiting, cough, congestion, sore throat fever as well as intermittent numbness to bilateral hands she states that this has been ongoing for for the past several days, she states that she has had decreased p.o. intake secondary to her symptoms. She states that she feels extremely weak as well. She denies any other symptoms such as headache visual disturbances abdominal pain or any other GI/ symptoms at this time. Related Data Home Medications Medication Instructions Recorded Confirmed [id number] 400 mcg-om3 35 mg-dha 25 tab PO 07/19/22 07/22/22 mg-epa 5 mg-fish oil chewable tablet buprenorphine HCl 8 mg sublingual 24 mg sublingual DAILY 07/19/22 07/22/22 tablet Allergies Allergy/AdvReac Type Severity Reaction Status Date / Time No Known Drug Allergies Allergy Verified 09/26/22 10:07 Review of Systems Review of Systems Narrative: General: Positive fever, generalized weakness, bilateral hand tingling numbness HEENT: Denies headache, eye drainage, eye irritation, head trauma, sore throat, voice change Cardiovascular: Denies any chest pain, palpitations, tachycardia Respiratory: Positive cough denies wheeze shortness breath stridor GI/: Denies any abdominal pain, nausea, vomiting, diarrhea, bright red blood per rectum, melanotic stools, urinary frequency, urinary retention, dysuria, hematuria MSK: Denies any joint pain, muscle pains, swelling Skin: Denies any rashes, lesions, discoloration Neuro: Denies any headache, lightheadedness, dizziness, fainting, weakness Psych: Denies SI/HI Patient History Medical History hemorrhage (~04/03/21) Vaginal delivery (~04/03/21) Dichorionic diamniotic twin gestation Wears glasses Substance abuse (~2017) Scoliosis Chronic back pain (~2016) Chicken pox (~1995) Suboxone maintenance treatment complicating , antepartum Fall from [facility] (~2017) Surgical History No pertinent past surgical history Family History Mother No problems noted. Father No problems noted. Grandfather Diabetes mellitus Grandmother No problems noted. Sister Heart murmur Pacemaker Social History marital status: unmarried,living together number of children: 3 household members: significant other and children lives independently: Yes caregiver/support person: Yes housing: other ([facility]) pets and animals: Yes education level: high school (GED in 2018. ) occupational status: unemployed current occupational exposures/hazards: No special florencio needs: No travel history: over 6 months ago seatbelt use: always water heater temp set < 120 deg: Yes working smoke detector in home: Yes fire extinguisher in home: Yes carbon monox detector in home: Yes firearms in home: No do you feel safe at home: Yes second hand exposure: Yes (s/o smokes) alcohol intake: never (Sober since age 25) substance use type: marijuana (stopped during twin , did not restart), opiates (fentanyl) and methamphetamine during the past year weight has: remained stable well-balanced diet: daily or most days daily servings fruits/ve or more times/day caffeine: Yes (1-2 cups coffee/day) Type(s) of exercise: walking frequency: daily duration: 30-45 minutes/day Smoking Status: Current every day smoker tobacco type: cigarettes and vaping alcohol intake frequency: holidays/special occasions only Exam Narrative Exam Narrative: General: Disheveled Cooperative, not in acute distress HEENT: Normocephalic, atraumatic, PERRLA, normal sclera, eyelids normal Neck: Active full range of motion, atraumatic Chest: Normal to inspection, negative crepitus, no overlying erythema ecchymosis Respiratory: Normal respiratory effort, not in acute respiratory distress, clear to auscultation bilaterally negative cough, wheeze, tachypnea, rhonchi, rales Cardiology: Regular rate rhythm negative gallop, murmur, rubs GI/: No tenderness to palpation, soft, non rigid, normal to inspection, exam deferred MSK: Full active range of motion in all 4 extremities, atraumatic, no tenderness to palpation of any bony prominences Skin: No rashes or lesions noted Neuro: Alert awake oriented x3, moves all 4 extremities spontaneously, cranial nerves intact, able to answer all questions appropriately follows commands appropriately Psych: Cooperative, negative suicidal or homicidal ideations Initial Vital Signs Initial Vital Signs: Vital Signs Temperature 97.9 F 06/13/24 19:34 Pulse Rate 80 06/13/24 19:34 Respiratory Rate 18 06/13/24 19:34 Blood Pressure 124/68 06/13/24 19:34 Pulse Oximetry 98 06/13/24 19:34 Oxygen Delivery Method Room Air 06/13/24 19:34 Course Orders Ordered: ED Orders 06/13/24 19:40 Covid-19 + FLU A/B + RSV - PCR Stat 06/13/24 19:57 Complete Blood Count AUTO DIFF Stat Comprehensive Metabolic Panel Stat Lipase Stat 06/13/24 22:56 Test Urine Stat Urine Microscopic Stat 06/13/24 23:23 EKG-12 Lead Stat POTASSIUM CHLORIDE IN WATER (Potassium Cl 10 Meq/100 Ml Chantel) 10 meq in 100 mls @ 100 mls/hr IV Q1H LUZ ELENA Stop: 06/14/24 03:44 Sodium Chloride (Normal Saline 0.9%) 1,000 mls @ 1,000 mls/hr IV BOLUS ONE Stop: 06/14/24 00:39 Ondansetron HCl (Ondansetron 4 Mg/2 Ml Inj) 4 mg IV NOW PRN PRN Reason: Nausea And Vomiting Last Admin: 06/13/24 20:05 Dose: 4 mg Documented By: INDIA Ondansetron HCl (Ondansetron 4 Mg Odt) 4 mg PO NOW PRN PRN Reason: Nausea And Vomiting Discontinued Medications Diphenhydramine HCl (Diphenhydramine 50 Mg/Ml Vial) 25 mg IV NOW ONE Stop: 06/13/24 20:40 Last Admin: 06/13/24 20:46 Dose: 25 mg Documented By: HNG Sodium Chloride (Normal Saline 0.9%) 1,000 mls @ 1,000 mls/hr IV BOLUS ONE Stop: 06/13/24 21:38 Last Infusion: 06/13/24 22:03 Dose: Infused Documented By: Admin: 06/13/24 20:46 Dose: 1,000 mls/hr Documented By: LOBO Magnesium Sulfate (Magnesium Sulfate) 2 gm in 50 mls @ 150 mls/hr IV NOW ONE Stop: 06/13/24 23:58 Last Admin: 06/13/24 23:51 Dose: 150 mls/hr Metoclopramide HCl (Metoclopramide 10 Mg/2 Ml Inj) 10 mg IV NOW ONE Stop: 06/13/24 20:40 Last Admin: 06/13/24 20:46 Dose: 10 mg Documented By: LOBO Potassium Chloride (Potassium Chloride 20 Meq/15 Ml Udc) 40 meq PO NOW ONE Stop: 06/13/24 23:40 Last Admin: 06/13/24 23:52 Dose: 40 meq Vital Signs Vital signs: Vital Signs - 8 hr 06/13/24 19:34 06/13/24 23:02 Temperature 97.9 F Pulse Rate 80 72 Respiratory Rate 18 16 Blood Pressure 124/68 111/84 Pulse Oximetry 98 97 Oxygen Delivery Method Room Air Room Air MDM - Nausea/Vomiting/Diarrhea Differential Diagnosis Differential diagnosis: Likely gastroenteritis, drug-induced nausea and vomiting, dehydration and other (Electrolyte abnormality, COVID, flu, RSV) Lab Data 06/13/24 19:57 06/13/24 19:57 Labs: Lab Results 06/13/24 06/13/24 06/13/24 Range/Units 19:40 19:57 22:56 WBC 9.7 (4.5-11.0) X10^3/uL RBC 4.51 (4.0-5.2) X10^6/uL Hgb 13.0 (12.0-16.0) g/dL Hct 38.0 (36-46) % MCV 84.3 (80-100) fL MCH 28.8 (26-34) PG MCHC 34.1 (30-36) % RDW 14.6 (11.6-14.8) % Plt Count 189 (150-400) X10^3/uL Neut % (Auto) 82.5 H (50-75) % Lymph % (Auto) 10.3 L (25-40) % Mccormick % (Auto) 7.0 (3-14) % Eos % (Auto) 0.0 L (2-4) % Baso % (Auto) 0.2 (0-2) % Neut # (Auto) 8000 H (5832-2007) /uL Lymph # (Auto) 1000 L (1850-5459) /uL Mccormick # (Auto) 700 (0-900) /uL Eos # (Auto) 0 (0-450) /uL Baso # (Auto) 0 (0-100) /uL Sodium 139 (137-145) mmol/L Potassium 2.8 L (3.4-5.1) mmol/L Chloride 108 H (98-107) mmol/L Carbon Dioxide 16 L (22-32) mmol/L BUN 5 L (7-17) mg/dL Creatinine 0.67 (0.52-1.04) mg/dL Estimated GFR > 60 (>60) mL/min BUN/Creatinine Ratio 7.5 (6-22) Glucose 137 H (70-100) mg/dL Calcium 8.4 (8.4-10.2) mg/dL Total Bilirubin 1.3 (0.2-1.3) mg/dL AST 55 H (14-36) IU/L ALT 32 (<35) IU/L Alkaline Phosphatase 74 (38-126) U/L Total Protein 7.9 (6.3-8.2) g/dL Albumin 4.8 (3.5-5.0) g/dL Globulin 3.1 (1.7-4.1) g/dL Albumin/Globulin Ratio 1.5 (1.0-2.8) Lipase 164 (23-300) U/L Urine RBC 1-5/hpf (0-5/HPF) Urine WBC 0-1/hpf (0-5/HPF) Ur Squamous Epith Cells 1-5 /hpf (0-5/HPF) Urine Bacteria Few (2-10) H (None) Urine Mucus 1+ H (Negative) Ur Culture Indicated? Cult not indicated Vol Urine Centrifuged 10ml (spun) Urine Test Negative (Negative) SARS-CoV-2 (PCR) Negative (Negative) Influenza A (RT-PCR) Flu a negative (NEGATIVE) Influenza B (RT-PCR) Flu b positive H (NEGATIVE) RSV (PCR) Negative (Negative) Urine Dip Bedside Urine Glucose Negative Bedside Urine Bilirubin - Negative Bedside Urine Ketone +/- 5 Urine Specific [place] 1.015 Bedside Urine Occult Blood + Bedside Urine pH 6.0 Bedside Urine Protein +/- 15 Bedside Urine Urobilinogen +/- 1mg Bedside Urine Nitrite - Negative Bedside Urine Leukocytes - Negative Esterase ECG Data Interpretation: EKG interpreted ED physician sinus bradycardia at 50 beats per minute QTC 525, normal axis T-wave flattening noted diffusely, however no STEMI MDM Narrative Medical decision making narrative: 34-year-old female no significant past medical history presents to the emergency department for generalized weakness and flu-like symptoms ongoing present for the past few days. She said she has had significant amount nausea and vomiting as well as cough and sore throat with intermittent fevers and intermittent numbness tingling to bilateral hands. Patient was found to be flu B positive, she has no leukocytosis is afebrile however her potassium is 2.8. She does not take any diuretics this is more likely secondary to significant fluid loss from her nausea and vomiting. EKG was nonischemic however did show prolonged QTC with T-wave flattening no obvious U-waves noted however given significant electrolyte abnormality patient will require admission to the hospital. Magnesium, potassium ordered. The patient's management plan was discussed Dr. Santana, who agrees to admit the patient to their service and assumes care of this patient at this time. Full admission orders will be placed by the primary team. Discharge Plan Departure Patient Disposition: Admitted As Inpatient Clinical Impression: Acute hypokalemia, Influenza B, Prolonged QT interval Admit Date/Time: 06/14/24 00:02
--- NOTE | 2024-06-13 23:23 | EKG_ITS ---
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
[2024-06-13] MEDS: MAGNESIUM SULFATE 2 GM/50 ML PIGGYBACK IV (23:51)
[2024-06-14 00:15] VITALS: BP 114/65; PULSE 50; RESP 24; TEMP 36.3; O2SAT 98
[2024-06-14] MEDS: POTASSIUM CHLORIDE IN WATER 10 MEQ/100 ML PIGGYBACK 100 MEQ IV ×4 (00:24→03:56)
[2024-06-14] MEDS: SODIUM CHLORIDE 0.9% 1,000 ML 1000 ML IV (00:24)
[2024-06-14 00:34] VITALS: BMI 15.4
[2024-06-14] MEDS: PROMETHAZINE 12.5 MG SUPP PR (01:41)
[2024-06-14] MEDS: SODIUM CHLORIDE 0.9% 250 ML 50 ML IV (01:50)
--- NOTE | 2024-06-14 02:19 | P.HP_ITS ---
History of Present Illness History of Present Illness Date Patient Seen: 06/14/24 Time Patient Seen: 01:00 Chief complaint: Numbness in hands, feverish Narrative: 34 y/o with PMH of chronic back pain, prior substance abuse, on buprenorphine, presented with nausea, vomiting, generalized weakness, cough, fever and congestion. Diagnosed with influenza B and hypokalemia. In the ED with difficulties holding PO due to severe nausea. Treated with IVFs and KCl and placed in observation on telemetry. [facility] Medical History hemorrhage (~04/03/21) Vaginal delivery (~04/03/21) Dichorionic diamniotic twin gestation Wears glasses Substance abuse (~2017) Scoliosis Chronic back pain (~2016) Chicken pox (~1995) Suboxone maintenance treatment complicating , antepartum Fall from [place] (~2016) Surgical History No pertinent past surgical history Family History Mother No problems noted. Father No problems noted. Grandfather Diabetes mellitus Grandmother No problems noted. Sister Heart murmur Pacemaker Social History marital status: unmarried,living together number of children: 3 household members: significant other and children lives independently: Yes caregiver/support person: Yes housing: other ([facility]) pets and animals: Yes education level: high school (GED in 2017. ) occupational status: unemployed current occupational exposures/hazards: No special florencio needs: No travel history: over 6 months ago seatbelt use: always water heater temp set < 120 deg: Yes working smoke detector in home: Yes fire extinguisher in home: Yes carbon monox detector in home: Yes firearms in home: No do you feel safe at home: Yes Smoking Status: Current every day smoker second hand exposure: Yes (s/o smokes) alcohol intake: never substance use type: marijuana (stopped during twin , did not restart), opiates (fentanyl) and methamphetamine during the past year weight has: remained stable well-balanced diet: daily or most days daily servings fruits/ve or more times/day caffeine: Yes (1-2 cups coffee/day) Type(s) of exercise: walking frequency: daily duration: 30-45 minutes/day Meds Home Medications and Allergies Home Medications Medication Instructions Recorded Confirmed Type buprenorphine HCl 8 mg sublingual 24 mg sublingual DAILY 07/19/22 06/14/24 History tablet Allergies Allergy/AdvReac Type Severity Reaction Status Date / Time No Known Drug Allergies Allergy Verified 09/26/22 10:07 Review of Systems Review of Systems Narrative: General - generalized weakness, fever RS - nasal congestion, cough CVS - w/o palpitations or chest pain GI - nausea, vomiting. Without abdominal pain, diarrhea, constipation, melena or hematemesis UG - w/o dysuria Exam Vital Signs (past 8 hours): - 06/13/24 19:34 06/13/24 23:02 06/14/24 00:15 Temperature 97.9 F 97.4 F L Pulse Rate 80 72 50 L Respiratory Rate 18 16 24 Blood Pressure 124/68 111/84 114/65 Pulse Oximetry 98 97 98 Oxygen Delivery Method Room Air Room Air Oxygen Flow Rate 0 06/14/24 01:11 Temperature Pulse Rate Respiratory Rate Blood Pressure Pulse Oximetry Oxygen Delivery Method Room Air Oxygen Flow Rate Oxygen Delivery Method Room Air Oxygen Flow Rate 0 Narrative Exam Narrative: General - in no distress, appears weak, sleepy HEENT - normocephalic RS - not wheezy, normal respiratory effort CVS - RRR Skjn - w/o rashes Neuro - w/o deficits, appropriate mood, lucid Objective ECG Impression: Junctional rhythm Labs 06/13/24 19:57 06/13/24 19:57 Labs: Laboratory Results - last 24 hr 06/13/24 06/13/24 06/13/24 19:40 19:57 22:56 WBC 9.7 RBC 4.51 Hgb 13.0 Hct 38.0 MCV 84.3 MCH 28.8 MCHC 34.1 RDW 14.6 Plt Count 189 Neut % (Auto) 82.5 H Lymph % (Auto) 10.3 L Shannon % (Auto) 7.0 Eos % (Auto) 0.0 L Baso % (Auto) 0.2 Neut # (Auto) 8000 H Lymph # (Auto) 1000 L Shannon # (Auto) 700 Eos # (Auto) 0 Baso # (Auto) 0 Sodium 139 Potassium 2.8 L Chloride 108 H Carbon Dioxide 16 L BUN 5 L Creatinine 0.67 Estimated GFR > 60 BUN/Creatinine Ratio 7.5 Glucose 137 H Calcium 8.4 Total Bilirubin 1.3 AST 55 H ALT 32 Alkaline Phosphatase 74 Total Protein 7.9 Albumin 4.8 Globulin 3.1 Albumin/Globulin Ratio 1.5 Lipase 164 Urine RBC 1-5/hpf Urine WBC 0-1/hpf Ur Squamous Epith Cells 1-5 /hpf Urine Bacteria Few (2-10) H Urine Mucus 1+ H Ur Culture Indicated? Cult not indicated Vol Urine Centrifuged 10ml (spun) Urine Test Negative SARS-CoV-2 (PCR) Negative Influenza A (RT-PCR) Flu a negative Influenza B (RT-PCR) Flu b positive H RSV (PCR) Negative Assessment & Plan Assessment and plan (1) Junctional rhythm: Status: Acute (2) Acute hypokalemia: Status: Acute (3) Influenza B: Status: Acute (4) Chronic back pain: Status: Chronic Assessment & Plan narrative: Influenza - Tamiflu - Tylenol - supportive care - antiemetics Dehydration - IVFs Hypokalemia - supplemented - monitored electrolytes - telemetry monitoring Junctional rhythm - prior EKG sinus bradycardia - telemetry monitoring Chronic back pain - buprenorphine DVT prophylaxis - SCDs Patient consented to this real-time, audiovisual telehealth visit. Nurse was at the bedside assisting with the exam. Provider located in [place]. Time-Based Coding :: [TOTAL MINUTES] spent with patient and on the chart (including review of chart, obtaining history, exam, reviewing outside data, placing orders, documenting exam and treatment plan, and counseling patient) on [DATE].
--- NOTE | 2024-06-14 03:13 | PC.ADMIT ---
1016 Admission Note: The patient,Darlin Melvin,34 y/o, was given written information regarding hospital policies, unit procedures and contact persons. Patient's smoking status: Current every day smoker. Vital Signs - 8 hr 06/13/24 19:34 06/13/24 23:02 06/14/24 00:15 Temperature 97.9 F 97.4 F L Pulse Rate 80 72 50 L Respiratory Rate 18 16 24 Blood Pressure 124/68 111/84 114/65 Pulse Oximetry 98 97 98 Oxygen Delivery Method Room Air Room Air Oxygen Flow Rate 0 06/14/24 01:11 Temperature Pulse Rate Respiratory Rate Blood Pressure Pulse Oximetry Oxygen Delivery Method Room Air Oxygen Flow Rate Patient admitted to room 222 from ER per wheelchair at 0015. Is alert and oriented. Breath sounds are CTA with RA sat of 98%. Denies congestion, runny nose or sore throat. States she has a cough and expectorates but unable to tell RN color of sputum and no cough noted during admission. HRR but bradycardic with rate in 40-50's; telemetry reading was a junctional rhythm. Endorses nausea but too early to give additional Reglan but then at 0130 she had emesis of 200cc bile colored liquid so medicated with rectal Promethazine. BT present and abdomen is soft and denies any tenderness. Denies dysuria, frequency or urgency. Is able to move herself in bed. No skin issues. Bilateral calf SCD's placed. Patient is moderate fall risk so educated on need to call staff for assistance when getting out of bed related to tubes etc and she verbalized understanding. Is NPO until breakfast. Placed in droplet isolation as is positive for influenza B. Denied pain. Oriented to call light and bed controls. Seen by Dr. Santana via teleconference. Currently with potassium infusing along with NS to dilute due to discomfort; Dr. Santana aware and gave approval.
--- NOTE | 2024-06-14 03:41 | PC.WOUNDPHOT ---
Left anterior thigh Right anterior thigh
[2024-06-14 04:00] VITALS: BP 115/72; PULSE 51; RESP 24; TEMP 36.7; O2SAT 98
[2024-06-14] MEDS: SODIUM CHLORIDE 0.9% FLUSH 10 ML IV ×2 (05:05→09:22)
[2024-06-14 06:24] LABS: Add Manual Diff / Slide Review NO; Basophils Absolute Auto 0 /uL (0-100); Basophils Percent Auto 0.1 % (0-2); Eosinophils Absolute Auto 0 /uL (0-450); Hematocrit 35.3 % (36-46); Hemoglobin 12.3 g/dL (12.0-16.0); Lymphocytes Absolute Auto 500 /uL (1100-4500); Lymphocytes Percent Auto 6.9 % (25-40); Mean Corpuscular HGB Conc 34.9 % (30-36); Mean Corpuscular Hemoglobin 29.2 PG (26-34); Mean Corpuscular Volume 83.7 fL (80-100); Monocytes Absolute Auto 300 /uL (0-900); Monocytes Percent Auto 4.4 % (3-14); Neutrophils Absolute Auto 6200 /uL (1500-7000); Neutrophils Percent Auto 88.6 % (50-75); Platelet Count 171 X10^3/uL (150-400); Red Blood Cell Count 4.22 X10^6/uL (4.0-5.2); Red Cell Distribution Width 14.4 % (11.6-14.8)
[2024-06-14 06:31] LABS: BUN Creatinine Ratio 5.8 (6-22); Blood Urea Nitrogen 3 mg/dL (7-17); Calcium 7.5 mg/dL (8.4-10.2); Carbon Dioxide 19 mmol/L (22-32); Chloride 108 mmol/L (98-107); Estimated Glomerular Filt Rate > 60 mL/min (>60); Glucose 118 mg/dL (70-100); HEMOLYSIS < 15 (0-50); Potassium 3.4 mmol/L (3.4-5.1); Sodium 137 mmol/L (137-145)
[2024-06-14 08:00] VITALS: BP 114/48; PULSE 65; RESP 16; TEMP 36.9; O2SAT 97
[2024-06-14] MEDS: OSELTAMIVIR 75 MG CAPSULE PO (09:21)
[2024-06-14] MEDS: POTASSIUM CHLORIDE 20 MEQ TAB 40 MEQ PO (09:32)
[2024-06-14] MEDS: BUPRENORPHINE HCL 8 MG 24 EACH SL (09:47)
[2024-06-14 12:00] VITALS: BP 115/75; PULSE 75; RESP 17; TEMP 37.3; O2SAT 98
--- NOTE | 2024-06-14 14:21 | CM.DANOTE ---
Patient is a 34 yo female who was admitted OBS Status on 06/14/24 for Flu B and hypokalemia. Pt has MEDICAID for insurance and her PCP is at the [facility]. EMR was reviewed. Per , pt admitted for tx of Influenza B with tamiflu and severe nausea/hypokalemia but if she can tolerate intake then likely can d/c home later this afternoon. SW met bedside with pt and explained role and she confirms she lives in an apt in [place] with her Sig Other and 4 young kids (age 6, twins that are 3, and a one year old). 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 Pt states her Sig Other can give her a ride home and assist as needed. Pt states when she needs a doctor she goes to the [facility] and just sees whatever doctor is available. Pt denies any housing or food insecurities and preference is home when stable and does not anticipate any needs. Pt only complains of sore throat from coughing for a few days and SW updated RN. Plan: SW to follow for likely d/c home later this afternoon if tolerating intake and any further identified discharge planning needs. NASRIN Bolton Discharge Planning/Care Management CM Discharge Assessment Start: 06/14/24 14:18 Freq: Status: Active Protocol: Document 06/14/24 14:18 BF (Rec: 06/14/24 14:21 BF [id number]) Discharge Planning Assessment Assigned Test Fixture Designer NASRIN Alanis DPOA/Assigned Designee Name none Advance Directives? No Advance Directives on File No History Provided By Patient,Medical Record Has Patient been admitted in last 30 No days? Prior Living Arrangements Apartment/Condo Household Members significant other,children Comment Pt lives with Sig Other and has 4 young kids ages 6, twins that are 3 yo, and a 1 yo Type of transporation used prior to Drives own vehicle admit Independent with ADL's Yes Is patient alert and oriented? Yes Caregiver for Another Yes: 4 kids at home under age 6 Barriers to Discharge No Discharge Plan Home Referrals Initiated None needed Whiteboard Updated in Patient Room with Yes name and ext. # of Test Fixture Designer Review Status In Process Please Provide Date Initial DC 06/14/24 Assessment Was Performed Next Review Type Continued Stay Review
--- NOTE | 2024-06-14 15:26 | DIET.CONS ---
Dietary Consultation Note Admission Date: 06/14/2024 00:11 Assessment: 34 y F admitted for hypokalemia and influenza. Dietitian consulted for low MNA. Met with pt in room. Pt reports N/V for 2 days before admission. Appetite has returned and ate breakfast. Normal appetite outside those 2 days. 2-3 meals per day. Diet recall consistent with normal meals (i.e meat, starch). Pt reports weight of 120-125 lb with no recent weight loss. Pt does not appear to be of BMI of 15. All other weights in chart are in line with 120-125 lb pt reported. No nutritional concerns at this time, pt to d/c this afternoon. Ht: 144.78 cm Wt: 32.3 kg BMI: 15.4 UBW: 54.54-56.8 kg per pt Last BM: 06/13/24 (06/14/24 00:34) MNA: 11 Tristan Score: 21 Diet: 06/14/24 Breakfast General (Regular) Diet Diet Modifications: Nutrition Percent Meal Consumed 100% 06/14/24 14:19 Labs: RBC 4.22 X10^6/uL (4.0-5.2) 06/14/24 05:00 Hgb 12.3 g/dL (12.0-16.0) 06/14/24 05:00 Hct 35.3 % (36-46) L 06/14/24 05:00 Creatinine 0.52 mg/dL (0.52-1.04) 06/14/24 05:00 Electronically Signed by: Soni Carias 06/14/24 15:26 Clinical Dietitian [address] [id number]
--- NOTE | 2024-06-14 16:06 | PM.DS.1 ---
History of Present Illness History of Present Illness Date Patient Seen: 06/14/24 Time Patient Seen: 16:06 Chief complaint: Numbness in hands, feverish Narrative: 34 y/o with PMH of chronic back pain, prior substance abuse, on buprenorphine, presented with nausea, vomiting, generalized weakness, cough, fever and congestion. Diagnosed with influenza B and hypokalemia. In the ED with difficulties holding PO due to severe nausea. Treated with IVFs and KCl and placed in observation on telemetry. Discharge Providers Provider Date of admission: 06/14/24 00:11 Discharge Date: 06/14/24 Primary care physician: Doctor Ailyn MD Consults: 06/14/24 00:45 Consult to Dietitian, Adult Routine Comment: Reason For Exam: low MNA score Consult to Pastoral Services Routine Comment: patient request Discharge provider: Mike Carpenter DO Summary Hospital Course Discharge Diagnosis: Influenza Dehydration Hypokalemia Junctional rhythm Opiate use disorder Hospital Course: 34 female with PMH of opiate use on buprenorphine, who was admitted with nausea/vomiting and hypokalemia due to influenza infection. Supportive care and potassium repletion was provided and the following day the patient was able to tolerate a diet and was feeling much improved. She was also noted to have a junctional rhythm with prolonged QT on admission. Telemetry was continued but she had no ongoing symptoms and rate was always controlled. She was discharged home tolerating a diet and feeling improved. She was given tamiflu and a prescription for zofran (which she had tolerated in the ER without significant changes to her QT interval on telemetry). Recommend repeat EKG in a few weeks with her primary care provider, and if continued junctional rhythm consider additional echocardiogram or referral to cardiology. Time Spent with Patient Time spent: Greater than 30 minutes Exam Vital Signs (past 8 hours): - 06/14/24 12:00 Temperature 99.2 F Pulse Rate 75 Respiratory Rate 17 Blood Pressure 115/75 Pulse Oximetry 98 Oxygen Flow Rate 0 Oxygen Delivery Method Room Air Oxygen Flow Rate 0 Narrative Exam Narrative: General - in no distress, appears weak, sleepy HEENT - normocephalic RS - not wheezy, normal respiratory effort CVS - RRR Skjn - w/o rashes Neuro - w/o deficits, appropriate mood, lucid Objective Labs 06/14/24 05:00 06/14/24 05:00 Labs: Laboratory Results - last 24 hr 06/13/24 06/13/24 06/13/24 19:40 19:57 22:56 WBC 9.7 RBC 4.51 Hgb 13.0 Hct 38.0 MCV 84.3 MCH 28.8 MCHC 34.1 RDW 14.6 Plt Count 189 Neut % (Auto) 82.5 H Lymph % (Auto) 10.3 L Winston % (Auto) 7.0 Eos % (Auto) 0.0 L Baso % (Auto) 0.2 Neut # (Auto) 8000 H Lymph # (Auto) 1000 L Winston # (Auto) 700 Eos # (Auto) 0 Baso # (Auto) 0 Sodium 139 Potassium 2.8 L Chloride 108 H Carbon Dioxide 16 L BUN 5 L Creatinine 0.67 Estimated GFR > 60 BUN/Creatinine Ratio 7.5 Glucose 137 H Calcium 8.4 Magnesium Total Bilirubin 1.3 AST 55 H ALT 32 Alkaline Phosphatase 74 Total Protein 7.9 Albumin 4.8 Globulin 3.1 Albumin/Globulin Ratio 1.5 Lipase 164 Urine RBC 1-5/hpf Urine WBC 0-1/hpf Ur Squamous Epith Cells 1-5 /hpf Urine Bacteria Few (2-10) H Urine Mucus 1+ H Ur Culture Indicated? Cult not indicated Vol Urine Centrifuged 10ml (spun) Urine Test Negative SARS-CoV-2 (PCR) Negative Influenza A (RT-PCR) Flu a negative Influenza B (RT-PCR) Flu b positive H RSV (PCR) Negative 06/14/24 05:00 WBC 7.0 RBC 4.22 Hgb 12.3 Hct 35.3 L MCV 83.7 MCH 29.2 MCHC 34.9 RDW 14.4 Plt Count 171 Neut % (Auto) 88.6 H Lymph % (Auto) 6.9 L Winston % (Auto) 4.4 Eos % (Auto) 0.0 L Baso % (Auto) 0.1 Neut # (Auto) 6200 Lymph # (Auto) 500 L Winston # (Auto) 300 Eos # (Auto) 0 Baso # (Auto) 0 Sodium 137 Potassium 3.4 Chloride 108 H Carbon Dioxide 19 L BUN 3 L Creatinine 0.52 Estimated GFR > 60 BUN/Creatinine Ratio 5.8 L Glucose 118 H Calcium 7.5 L Magnesium 2.0 Total Bilirubin AST ALT Alkaline Phosphatase Total Protein Albumin Globulin Albumin/Globulin Ratio Lipase Urine RBC Urine WBC Ur Squamous Epith Cells Urine Bacteria Urine Mucus Ur Culture Indicated? Vol Urine Centrifuged Urine Test SARS-CoV-2 (PCR) Influenza A (RT-PCR) Influenza B (RT-PCR) RSV (PCR) [facility] Medical History hemorrhage (~04/03/21) Vaginal delivery (~04/03/21) Dichorionic diamniotic twin gestation Wears glasses Substance abuse (~2017) Scoliosis Chronic back pain (~2016) Chicken pox (~1995) Suboxone maintenance treatment complicating , antepartum Fall from balcony (~2016) Surgical History No pertinent past surgical history Family History Mother No problems noted. Father No problems noted. Grandfather Diabetes mellitus Grandmother No problems noted. Sister Heart murmur Pacemaker Social History marital status: unmarried,living together number of children: 3 household members: significant other and children lives independently: Yes caregiver/support person: Yes housing: other ([facility]) pets and animals: Yes education level: high school (GED in 2018. ) occupational status: unemployed current occupational exposures/hazards: No special florencio needs: No travel history: over 6 months ago seatbelt use: always water heater temp set < 120 deg: Yes working smoke detector in home: Yes fire extinguisher in home: Yes carbon monox detector in home: Yes firearms in home: No do you feel safe at home: Yes Smoking Status: Current every day smoker second hand exposure: Yes (s/o smokes) alcohol intake: never substance use type: marijuana (stopped during twin , did not restart), opiates (fentanyl) and methamphetamine during the past year weight has: remained stable well-balanced diet: daily or most days daily servings fruits/ve or more times/day caffeine: Yes (1-2 cups coffee/day) Type(s) of exercise: walking frequency: daily duration: 30-45 minutes/day Discharge Plan Discharge Plan Patient Disposition: Home Provider Discharge Comment: You were admitted to the hospital with nausea and vomiting due to the flu. Improved with supportive medications. Continue zofran as needed at home, and tamiflu as directed on the package instructions. Discharge orders & Medications Prescriptions: New ondansetron HCl 4 mg tablet 4 mg PO Q8H 5 Days Qty: 15 0RF oseltamivir 75 mg capsule 75 mg PO BID 5 Days Qty: 10 0RF Continued buprenorphine HCl 8 mg tablet, sublingual 24 mg sublingual DAILY Follow up/Referrals: Ailyn,Doctor, MD [Primary Care Provider] - Diet/Activity/Treatments Diet: Diet as Tolerated and Regular Activity: As tolerated Visit Report/Discharge Packet Instructions: DI for Influenza -- Adult, Hypokalemia Stand Alone Forms: Patient Portal/API, Stroke Signs & Symptoms Discharge Data Primary Care Provider: Doctor Ailyn Attending Provider: Antoine Benítez Admit Date/Time: 06/14/24 00:11
== END 2024-06-14 18:15 | disposition home or self-care (01) ==
LOC: ED 23:46 → AC 06-14 00:11
PROVIDERS: Admitting Provider Internal Medicine; Emergency Provider Student in an Organized Health Care Education/Training Program; Referring Provider Student in an Organized Health Care Education/Training Program; Visit Provider Internal Medicine
DX: J10.1 Influenza due to other identified influenza virus with other respiratory manifestations (principal); E87.6 Hypokalemia; E86.0 Dehydration; I49.8 Other specified cardiac arrhythmias; M54.9 Dorsalgia, unspecified; G89.29 Other chronic pain; Z79.891 Long term (current) use of opiate analgesic; F17.210 Nicotine dependence, cigarettes, uncomplicated; F11.11 Opioid abuse, in remission
CPT/HCPCS: 0241U; 36415; 80048; 80053; 81003; 81015; 81025; 83690; 83735; 85025; 93005; 96361; 96365; 96366; 96367; 96375; 99284; G0378; J1200; J2405; J2765; J3475

== ENCOUNTER 2024-08-09 11:16 | Emergency (ER) | payer MEDICAID, SELFPAY ==
[2024-08-09 11:28] VITALS: BP 127/68; PULSE 74; RESP 18; TEMP 36.7; O2SAT 95; BMI 27.0
--- NOTE | 2024-08-09 11:35 | ED.DENTAL ---
HPI - Dental/Oral <Fely Medina PA-C - Last Filed: 08/09/24 12:06> General Chief complaint: Dental/Oral Stated complaint: left jaw pain Time Seen by Provider: 08/09/24 11:34 Source: patient Mode of arrival: Ambulatory History of Present Illness HPI Narrative: Ms. Melvin is a very pleasant 34-year-old female with no reported past medical history presents to the emergency department for left lower jaw swelling x 24 hours. Patient states yesterday she started developing pain on her back left lower molar and noticed some swelling of the jaw in that area as well. She went to a dentist this morning however they told her to go to the ER because they are unable to see her until August 20. She is struggled with dental infections in the past. She has no antibiotic allergies. She feels otherwise well and denies any chest pain, shortness of breath, fevers, chills, difficulty or pain with swallowing, ear pain, neck pain or swelling. No redness of the face. She took 400 mg of ibuprofen prior to arrival. She does have dental insurance and has an appointment now made for August 20. Related Data Home Medications Medication Instructions Recorded Confirmed buprenorphine HCl 8 mg sublingual 24 mg sublingual DAILY 07/19/22 06/14/24 tablet Previous Rx's Medication Instructions Recorded amoxicillin 875 mg-potassium 1 tab PO Q12H 10 days #20 tabs 08/09/24 clavulanate 125 mg tablet chlorhexidine gluconate 0.12 % 15 ml buccal DAILY #120 mL 08/09/24 mouthwash (Peridex) Allergies Allergy/AdvReac Type Severity Reaction Status Date / Time No Known Drug Allergies Allergy Verified 08/09/24 11:32 Review of Systems <Fely Medina PA-C - Last Filed: 08/09/24 12:06> Review of Systems ROS Unobtainable: All systems reviewed & are unremarkable except as noted in HPI and below Patient History <Fely Medina PA-C - Last Filed: 08/09/24 12:06> Medical History hemorrhage (~04/03/21) Vaginal delivery (~04/03/21) Dichorionic diamniotic twin gestation Wears glasses Substance abuse (~2017) Scoliosis Chronic back pain (~2016) Chicken pox (~1995) Suboxone maintenance treatment complicating , antepartum Fall from balcony (~2016) Surgical History No pertinent past surgical history Family History Mother No problems noted. Father No problems noted. Grandfather Diabetes mellitus Grandmother No problems noted. Sister Heart murmur Pacemaker Social History marital status: unmarried,living together number of children: 3 household members: significant other and children lives independently: Yes caregiver/support person: Yes housing: other ([facility]) pets and animals: Yes education level: high school (GED in 2018. ) occupational status: unemployed current occupational exposures/hazards: No special florencio needs: No travel history: over 6 months ago seatbelt use: always water heater temp set < 120 deg: Yes working smoke detector in home: Yes fire extinguisher in home: Yes carbon monox detector in home: Yes firearms in home: No do you feel safe at home: Yes second hand exposure: Yes (s/o smokes) alcohol intake: never substance use type: marijuana (stopped during twin , did not restart), opiates (fentanyl) and methamphetamine during the past year weight has: remained stable well-balanced diet: daily or most days daily servings fruits/ve or more times/day caffeine: Yes (1-2 cups coffee/day) Type(s) of exercise: walking frequency: daily duration: 30-45 minutes/day tobacco type: cigarettes and vaping alcohol intake frequency: holidays/special occasions only Exam <Fely Medina PA-C - Last Filed: 08/09/24 12:06> Narrative Exam Narrative: GENERAL: 34 year old patient appears stated age. Well-developed patient, in no acute distress. HEAD: Atraumatic. Normocephalic. No facial erythema. EYES: Extraocular motions intact. No scleral icterus. No injection or drainage. ENT: Left lower posterior molar, #19 region, decayed with only root intact, minimal surrounding erythema, no fluctuance, edema or bleeding of the surrounding gingiva. No palpable intraoral abscess. Floor of mouth and submandibular region soft. Diffuse poor dentition. Normal TMs BL, scant dried cerumen in right canal. Nose without bleeding, purulent drainage. Throat without erythema, tonsillar hypertrophy or exudate. Uvula midline. Airway patent. NECK: Trachea midline. Cervical ROM intact. no neck swelling, no palpable lymphadenopathy. CARDIOVASCULAR: Regular rate RESPIRATORY: Nonlabored respirations. Speaking in clear, full sentences. NEURO: AOx3. Clear speech. Moves all 4 extremities appropriately. SKIN: No rash or erythema of visible areas Initial Vital Signs Initial Vital Signs: Vital Signs Temperature 98.1 F 08/09/24 11:28 Pulse Rate 74 08/09/24 11:28 Respiratory Rate 18 08/09/24 11:28 Blood Pressure 127/68 08/09/24 11:28 Pulse Oximetry 95 08/09/24 11:28 Oxygen Delivery Method Room Air 08/09/24 11:28 <Jagruti Dominguez MD - Last Filed: 08/12/24 05:35> Initial Vital Signs Initial Vital Signs: Vital Signs Temperature 98.1 F 08/09/24 11:28 Pulse Rate 74 08/09/24 11:28 Respiratory Rate 18 08/09/24 11:28 Blood Pressure 127/68 08/09/24 11:28 Pulse Oximetry 95 08/09/24 11:28 Oxygen Delivery Method Room Air 08/09/24 11:28 Course <Fely Medina PA-C - Last Filed: 08/09/24 12:06> Orders Ordered: Discontinued Medications Acetaminophen (Acetaminophen 325 Mg Tablet) 975 mg PO NOW ONE Stop: 08/09/24 11:43 Last Admin: 08/09/24 11:53 Dose: 975 mg Documented By: GLEN Amoxicillin/Clavulanate Potassium (Amoxicillin/Clav 875/125 Mg) 1 tab PO NOW ONE Stop: 08/09/24 11:43 Last Admin: 08/09/24 11:52 Dose: 1 tab Documented By: GLEN Vital Signs Vital signs: Vital Signs - 8 hr 08/09/24 11:28 Temperature 98.1 F Pulse Rate 74 Respiratory Rate 18 Blood Pressure 127/68 Pulse Oximetry 95 Oxygen Delivery Method Room Air <Jagruti Dominguez MD - Last Filed: 08/12/24 05:35> Orders Ordered: Discontinued Medications Acetaminophen (Acetaminophen 325 Mg Tablet) 975 mg PO NOW ONE Stop: 08/09/24 11:43 Last Admin: 08/09/24 11:53 Dose: 975 mg Documented By: GLEN Amoxicillin/Clavulanate Potassium (Amoxicillin/Clav 875/125 Mg) 1 tab PO NOW ONE Stop: 08/09/24 11:43 Last Admin: 08/09/24 11:52 Dose: 1 tab Documented By: RB Vital Signs Vital signs: Vital Signs - 8 hr 08/09/24 11:28 Temperature 98.1 F Pulse Rate 74 Respiratory Rate 18 Blood Pressure 127/68 Pulse Oximetry 95 Oxygen Delivery Method Room Air MDM - Dental/Oral <Fely Medina PA-C - Last Filed: 08/09/24 12:06> Medical Records Attestation: I reviewed the patient's medical records. [facility] Narrative Medical decision making narrative: 34-year-old female with no reported past medical history presents to the emergency department for left lower jaw swelling x 24 hours. Differential diagnosis includes but is not limited to dental infection, dental abscess, pulpitis, dental caries, decayed teeth, gingivitis, parotitis, etc. On exam the patient is in no acute distress, nontoxic appearing, vital signs all within normal limits. She has diffuse poor dentition with focal pain on the left lower posterior molar with subsequent mild facial edema. No facial erythema, fluctuance, induration, no palpable intraoral abscess, the posterior oropharynx is widely patent, uvula is midline, no difficulty tolerating secretions, no submandibular swelling. Patient is able to open her mouth fully. No systemic symptoms. Will treat dental infection with Augmentin b.i.d. times 10 days, Peridex mouthwash, ibuprofen, acetaminophen, Orajel for pain, follow up with dentist on August 20 or earlier. Discussed strict ED return precautions. Patient verbalized understanding of all information agreeable with the plan. She is stable for discharge home, 1st dose of antibiotic given in the ED, remainder sent to pharmacy of choice. Discharge Plan Departure Patient Disposition: Home Clinical Impression: Dental infection Instructions: DI for Dental Pain Activity Restrictions/Additional Instructions: Dear Ms. Melvin, Thank you for coming to the emergency department. Today your physical exam is concerning for a left lower dental infection. I have prescribed antibiotics to take twice a day for the next 10 days in addition to mouthwash to use daily. Please use ibuprofen, Tylenol, Orajel for pain. Please follow up with a dentist as soon as possible, keep your scheduled appointment if they are unable to see you sooner. Please return to the emergency department if you develop any new or worsening symptoms, fevers, difficulty swallowing, redness of the face or other concerns. Please take Ibuprofen (Motrin/Advil) or Acetaminophen (Tylenol) for pain. These are available over the counter. You may take Ibuprofen 600 mg every 8 hours with food for pain. You may also take Acetaminophen 650 mg every 4-6 hours for pain. Do not exceed 3000 mg of Tylenol a day as this can cause liver damage. Do not drink alcohol with either of these medications. Please follow up with your primary care doctor within the next 2-3 days for ER follow-up. (If you do not have a PCP you can call [phone]. to schedule an appointment with an [facility] Primary Care Provider) IF YOU DEVELOP ANY NEW OR WORSENING SYMPTOMS, RETURN TO THE ER! Please read the attached instructions, they highlight more specific treatments and interventions for you at home. Thank you for letting me participate in your care, Fely Medina PA-C Prescriptions: New amoxicillin-pot clavulanate 875-125 mg tablet 1 tab PO Q12H 10 Days Qty: 20 0RF chlorhexidine gluconate [Peridex] 0.12 % mouthwash 15 ml buccal DAILY Qty: 120 0RF No Action buprenorphine HCl 8 mg tablet, sublingual 24 mg sublingual DAILY Referrals: Miscellaneous,DoctorMD [Non-Staff] - Stand Alone Forms: Patient Portal/API/Survey ED Sign-out <Jagruti Dominguez MD - Last Filed: 08/12/24 05:35> Cosign ED Attending Cosjagrutiature Attestation: I was immediately available in the department for consultation throughout this patient's visit. Jagruti Dominguez MD
[2024-08-09] MEDS: AMOXICILLIN/CLAV 875/125 MG 1 TAB PO (11:52)
[2024-08-09] MEDS: ACETAMINOPHEN 325 MG TABLET 975 MG PO (11:53)
--- NOTE | 2024-08-09 11:58 | PC.NURSE ---
This RN was present thoroughout all interactions with student and patient and I agree to all student RN charting.
== END 2024-08-09 11:58 | disposition home or self-care (01) ==
LOC: ED 11:57
PROVIDERS: Emergency Provider Physician Assistant
DX: K04.7 Periapical abscess without sinus (principal)
CPT/HCPCS: 99283